=== PATIENT | male | born 1960 | race Caucasian/White ===

== ENCOUNTER → 2016-08-17 | Outpatient (CLI) | payer MEDICAID ==
[2016-08-17 10:56] LABS: ALT 42 U/L (21-72); AST 27 U/L (17-59); Alkaline Phosphatase 63 U/L (38-126); Anion Gap 11 mmol/L; Blood Urea Nitrogen 16 mg/dL (9-20); Calcium 9.1 mg/dL (8.4-10.2); Carbon Dioxide 28 mmol/L (22-30); Chloride 104 mmol/L (98-107); Cholesterol 176 mg/dL (<200); Glucose 111 mg/dL (74-99); HDL Cholesterol 32 mg/dL (40-60); Non-African American GFR(MDRD) 57 (>60 ml/min/1.73 sqM); Potassium 5.3 mmol/L (3.5-5.1); Sodium 143 mmol/L (137-145); Total Bilirubin 0.5 mg/dL (0.2-1.3); Triglycerides 212 mg/dL (<150)
== END | disposition home or self-care (01) ==
LOC: LABWHC1 07:02
PROVIDERS: ATTEND Family Medicine
DX: Z00.01 Encounter for general adult medical examination with abnormal findings (principal); Z12.5 Encounter for screening for malignant neoplasm of prostate
CPT/HCPCS: 84439; 80061; 80053; 84443; 36415; G0103

== ENCOUNTER 2016-10-09 10:05 | Emergency (ER) | payer MEDICAID ==
[2016-10-09 10:08] VITALS: BP 156/84; PULSE 90; RESP 20; TEMP 98.8
--- NOTE | 2016-10-09 10:22 | ED ---
General Adult HPI - General Chief complaint: Extremity Problem,Nontraumatic Stated complaint: foot pain Time Seen by Provider: 10/09/16 10:05 Source: patient, RN notes reviewed Mode of arrival: ambulatory Limitations: no limitations - History of Present Illness Initial comments: This is a 55-year-old male who presents emergency Department complaining of right foot pain and swelling. Patient states for about a week is been sore it started on the bottom side of his foot and now is progressive top of his foot. Patient states it also is become swollen in the last few days. Patient states it hurts to help it and it hurts to walk on. Patient states he does not remember any blunt trauma to the area. Patient doesn't remember any injury whatsoever. Patient states she was up and down a ladder quite a bit last week but something that is part of his normal job. Patient denies any history of gout. Patient denies any redness to the area. Patient denies any ankle pain toe pain or knee pain. Patient denies any other problems at this time. Patient denies any fever chills - Related Data Home Medications Medication Instructions Recorded Confirmed Aspirin [Adult Low Dose Aspirin EC] 81 mg PO DAILY 10/23/15 10/09/16 Levothyroxine Sodium [Synthroid] 88 mcg PO DAILY 10/23/15 10/09/16 Omeprazole [PriLOSEC] 20 mg PO DAILY PRN 10/23/15 10/09/16 amLODIPine [Norvasc] 5 mg PO DAILY 10/23/15 10/09/16 Ibuprofen [Motrin] 400 mg PO Q8H PRN 10/09/16 10/09/16 Allergies Allergy/AdvReac Type Severity Reaction Status Date / Time No Known Allergies Allergy Verified 10/09/16 10:20 Review of Systems ROS Statement: Those systems with pertinent positive or pertinent negative responses have been documented in the HPI. ROS Other: All systems not noted in ROS Statement are negative. Past Medical History Past Medical History: GERD/Reflux, Hypertension, Thyroid Disorder History of Any Multi-Drug Resistant Organisms: None Reported Past Surgical History: Orthopedic Surgery Additional Past Surgical History / Comment(s): colonscopy, left knee Past Anesthesia/Blood Transfusion Reactions: No Reported Reaction Past Psychological History: No Psychological Hx Reported Smoking Status: Never smoker Past Alcohol Use History: None Reported Past Drug Use History: None Reported - Past Family History Father Family Medical History: Cancer General Exam - General Exam Comments Initial Comments: GENERAL Patient is well-developed and well-nourished. Patient is in mild distress. EYES Patient's pupils are equal and round. Extraocular motion is intact SKIN Unremarkable NEURO The patient is alert and oriented 3 PYSCH Patient has normal interpersonal interactions. MUSCULOSKELETAL The lateral mid right foot is tender to palpation and mildly swollen Limitations: no limitations Course Vital Signs 10/09/16 10:06 Temperature 98.8 F Pulse Rate 90 Respiratory 20 Rate Blood Pressure 156/84 O2 Sat by Pulse 99 Oximetry Medical Decision Making - Medical Decision Making X-ray of the foot shows no acute abnormality Disposition Clinical Impression: Foot sprain Disposition: HOME SELF-CARE Condition: Good Instructions: Foot Sprain (ED) Additional Instructions: Patient's take Motrin 600 mg every 6 hours Referrals: Anil Farrell III, MD [Primary Care Provider] - 1-2 days Time of Disposition: 10:58
--- NOTE | 2016-10-09 10:43 | XR ---
EXAMINATION TYPE: XR foot complete RT DATE OF EXAM: 10/09/2016 COMPARISON: NONE HISTORY: 55-year-old male with pain and swelling for one week TECHNIQUE: 3 views FINDINGS: Mild diffuse soft tissue swelling. No acute fracture, subluxation, or dislocation. Moderate sized taylor ntar calcaneal spur. There may be thickening at the origin of the plantar fascia. IMPRESSION: 1. Mild diffuse soft tissue swelling without acute osseous abnormality seen. 2. Moderate-sized plantar calcaneal spur. There appears to be some thickening at the origin of the pl tobias fascia. Correlate for any symptoms of plantar fasciitis
== END 2016-10-09 11:08 | disposition home or self-care (01) ==
LOC: EC 10:05
DX: S93.601A Unspecified sprain of right foot, initial encounter (principal); K21.9 Gastro-esophageal reflux disease without esophagitis; I10 Essential (primary) hypertension; E07.9 Disorder of thyroid, unspecified; Z98.890 Other specified postprocedural states; Z79.82 Long term (current) use of aspirin; Z79.899 Other long term (current) drug therapy; X58.XXXA Exposure to other specified factors, initial encounter
CPT/HCPCS: 99283

== ENCOUNTER → 2017-08-10 | Outpatient (CLI) | payer MEDICAID ==
[2017-08-10 07:59] LABS: Basophils # (A) 0.1 k/uL (0-0.2); Basophils % (A) 1 %; Eosinophils # (A) 0.3 k/uL (0-0.7); Eosinophils % (A) 6 %; HCT 47.4 % (39.0-53.0); HGB 15.8 gm/dL (13.0-17.5); Lymphocytes # (A) 2.1 k/uL (1.0-4.8); Lymphocytes % (A) 36 %; MCH 27.8 pg (25.0-35.0); MCHC 33.2 g/dL (31.0-37.0); MCV 83.7 fL (80.0-100.0); Mean Platelet Volume 7.7; Monocytes # (A) 0.5 k/uL (0-1.0); Monocytes % (A) 9 %; Neutrophils # (A) 2.6 k/uL (1.3-7.7); Neutrophils % (A) 45 %; Platelet Count 164 k/uL (150-450); RBC 5.66 m/uL (4.30-5.90); RDW 13.5 % (11.5-15.5); WBC 5.8 k/uL (3.8-10.6)
[2017-08-10 10:29] LABS: Albumin 4.2 g/dL (3.5-5.0); Potassium 4.5 mmol/L (3.5-5.1); Total Bilirubin 0.6 mg/dL (0.2-1.3); Total Protein 7.3 g/dL (6.3-8.2)
[2017-08-10 10:46] LABS: T4, Free (Free Thyroxine) 0.97 ng/dL (0.78-2.19)
[2017-08-10 11:00] LABS: PSA Annual Screen 0.42 ng/mL (0.00-4.00)
== END | disposition home or self-care (01) ==
LOC: LABWHC1 06:59
PROVIDERS: ATTEND Family Medicine
DX: E03.9 Hypothyroidism, unspecified (principal); I10 Essential (primary) hypertension
CPT/HCPCS: 84439; 80053; 84443; 85025; 36415; G0103

== ENCOUNTER → 2018-04-20 | Outpatient (CLI) | payer OTHER ==
--- NOTE | 2018-04-20 15:32 | XR ---
EXAMINATION TYPE: XR shoulder complete LT DATE OF EXAM: 04/20/2018 CLINICAL HISTORY: Left shoulder pain for 5 days after shoveling snow TECHNIQUE: Three views of the left shoulder are obtained. COMPARISON: None. FINDINGS: There is no acute fracture/dislocation evident in the left shoulder. The glenohumeral andres nt space appears within normal limits. There are small marginal osteophytes of the acromioclavicular joint. The visualized ribs are intact and unremarkable. IMPRESSION: There is no acute fracture or dislocation in the left shoulder. Mild left acromioclavicu lar arthropathy.
== END | disposition home or self-care (01) ==
LOC: RADXRMAIN 14:12
PROVIDERS: ATTEND Emergency Medicine
DX: M19.012 Primary osteoarthritis, left shoulder (principal)

== ENCOUNTER → 2018-05-22 | Outpatient (CLI) | payer MEDICAID ==
[2018-05-22 16:26] LABS: Albumin 4.4 g/dL (3.80-4.90); Albumin/Globulin Ratio 1.76 (1.60-3.17); Calcium 9.4 mg/dL (8.7-10.3); Globulin 2.5 g/dL (1.6-3.3); LDL Cholesterol,Calculated 108.8 mg/dL (0.0-131.0); Potassium 5.2 mmol/L (3.5-5.5); Total Bilirubin 0.5 mg/dL (0.2-1.2); Total Protein 6.9 g/dL (6.2-8.2); VLDL Calculation 35.2 mg/dL (5.00-40.00)
[2018-05-22 16:34] LABS: T4, Free (Free Thyroxine) 1.3 ng/dL (0.80-1.80)
== END | disposition home or self-care (01) ==
LOC: LABWHC1 07:38
PROVIDERS: ATTEND Family Medicine
DX: E03.9 Hypothyroidism, unspecified (principal); I10 Essential (primary) hypertension
CPT/HCPCS: 36415; 80053; 80061; 84439; 84443

== ENCOUNTER → 2018-11-08 | Outpatient (CLI) | payer MEDICAID ==
[2018-11-08 08:01] LABS: Basophils # (A) 0.1 k/uL (0-0.2); Basophils % (A) 1 %; Eosinophils # (A) 0.5 k/uL (0-0.7); Eosinophils % (A) 7 %; HGB 16.5 gm/dL (13.0-17.5); Lymphocytes # (A) 2.5 k/uL (1.0-4.8); Lymphocytes % (A) 33 %; MCV 84.6 fL (80.0-100.0); Mean Platelet Volume 8.2; Monocytes # (A) 0.5 k/uL (0-1.0); Monocytes % (A) 7 %; Neutrophils # (A) 3.8 k/uL (1.3-7.7); Neutrophils % (A) 50 %; Platelet Count 205 k/uL (150-450); RDW 15.2 % (11.5-15.5); WBC 7.5 k/uL (3.8-10.6)
[2018-11-08 16:37] LABS: African American GFR (CKD) 69.2 (60.0-200.0); Albumin 4.4 g/dL (3.80-4.90); Albumin/Globulin Ratio 1.83 (1.60-3.17); Anion Gap 6.2 mmol/L (4.00-12.00); BUN/Creat Ratio 12.31 Ratio (12.00-20.00); Calcium 9.2 mg/dL (8.7-10.3); Carbon Dioxide 31.8 mmol/L (21.6-31.8); Chol/HDL Ratio 4.89; Globulin 2.4 g/dL (1.6-3.3); LDL Cholesterol,Calculated 96.8 mg/dL (0.0-131.0); Potassium 4.9 mmol/L (3.5-5.5); Total Bilirubin 0.5 mg/dL (0.2-1.2); Total Protein 6.8 g/dL (6.2-8.2); VLDL Calculation 39.2 mg/dL (5.00-40.00)
[2018-11-08 16:46] LABS: T4, Free (Free Thyroxine) 1.2 ng/dL (0.80-1.80)
== END | disposition home or self-care (01) ==
LOC: LABWHC1 07:00
PROVIDERS: ATTEND Family Medicine
DX: Z00.01 Encounter for general adult medical examination with abnormal findings (principal); I10 Essential (primary) hypertension; Z13.220 Encounter for screening for lipoid disorders; Z12.5 Encounter for screening for malignant neoplasm of prostate; E03.9 Hypothyroidism, unspecified
CPT/HCPCS: 84439; 80061; 80053; 84443; 85025; 36415; G0103

== ENCOUNTER → 2019-05-21 | Outpatient (CLI) | payer MEDICAID ==
[2019-05-21 16:06] LABS: African American GFR (CKD) 69.2 (60.0-200.0); Albumin 4.5 g/dL (3.80-4.90); Albumin/Globulin Ratio 1.67 (1.60-3.17); Anion Gap 8.1 mmol/L (4.00-12.00); BUN/Creat Ratio 13.08 Ratio (12.00-20.00); Calcium 9.3 mg/dL (8.7-10.3); Carbon Dioxide 28.9 mmol/L (21.6-31.8); Globulin 2.7 g/dL (1.6-3.3); Non-African American GFR(CKD) 59.7 (60.0-200.0); Potassium 4.7 mmol/L (3.5-5.5); Total Bilirubin 0.4 mg/dL (0.2-1.2); Total Protein 7.2 g/dL (6.2-8.2)
[2019-05-21 16:13] LABS: T4, Free (Free Thyroxine) 1.2 ng/dL (0.80-1.80)
== END | disposition home or self-care (01) ==
LOC: LABWHC1 08:15
PROVIDERS: ATTEND Family Medicine
DX: I10 Essential (primary) hypertension (principal); E03.9 Hypothyroidism, unspecified
CPT/HCPCS: 36415; 80053; 84439; 84443

== ENCOUNTER → 2019-11-15 | Outpatient (CLI) | payer MEDICAID ==
[2019-11-15 08:49] LABS: Basophils # (A) 0.1 k/uL (0-0.2); Basophils % (A) 2 %; Eosinophils # (A) 0.5 k/uL (0-0.7); Eosinophils % (A) 7 %; HCT 50.6 % (39.0-53.0); HGB 16.6 gm/dL (13.0-17.5); Lymphocytes % (A) 27 %; MCH 27.5 pg (25.0-35.0); MCHC 32.8 g/dL (31.0-37.0); Monocytes # (A) 0.6 k/uL (0-1.0); Monocytes % (A) 8 %; Neutrophils # (A) 4.1 k/uL (1.3-7.7); Neutrophils % (A) 55 %; Platelet Count 188 k/uL (150-450); RBC 6.03 m/uL (4.30-5.90); RDW 12.8 % (11.5-15.5); WBC 7.5 k/uL (3.8-10.6)
[2019-11-15 18:29] LABS: African American GFR (CKD) 68.7 (60.0-200.0); Albumin 4.4 g/dL (3.80-4.90); Albumin/Globulin Ratio 1.63 (1.60-3.17); Anion Gap 8.8 mmol/L (4.00-12.00); BUN/Creat Ratio 13.08 Ratio (12.00-20.00); Calcium 9.1 mg/dL (8.7-10.3); Carbon Dioxide 28.2 mmol/L (21.6-31.8); Chol/HDL Ratio 4.91; Globulin 2.7 g/dL (1.6-3.3); Non-African American GFR(CKD) 59.3 (60.0-200.0); Total Bilirubin 0.5 mg/dL (0.3-1.2); Total Protein 7.1 g/dL (6.2-8.2)
[2019-11-15 18:37] LABS: PSA Annual Screen 0.6 ng/mL (0.0-4.0)
== END | disposition home or self-care (01) ==
LOC: LABWHC1 07:19
PROVIDERS: ATTEND Family Medicine
DX: E03.9 Hypothyroidism, unspecified (principal); I10 Essential (primary) hypertension
CPT/HCPCS: 80061; 80053; 85025; 36415; G0103

== ENCOUNTER → 2019-12-09 | Outpatient (CLI) | payer MEDICAID ==
[2019-12-10 03:48] LABS: T4, Free (Free Thyroxine) 1.1 ng/dL (0.80-1.80)
== END | disposition home or self-care (01) ==
LOC: LABWHC1 15:58
PROVIDERS: ATTEND Family Medicine
DX: E03.9 Hypothyroidism, unspecified (principal)
CPT/HCPCS: 36415; 84439; 84443

== ENCOUNTER → 2020-05-19 | Outpatient (CLI) | payer MEDICAID ==
[2020-05-19 12:12] LABS: African American GFR (CKD) 68.7 (60.0-200.0); Albumin 4.6 g/dL (3.80-4.90); Albumin/Globulin Ratio 1.84 (1.60-3.17); Anion Gap 2.9 mmol/L (4.00-12.00); BUN/Creat Ratio 13.08 Ratio (12.00-20.00); Calcium 9.4 mg/dL (8.7-10.3); Carbon Dioxide 33.1 mmol/L (21.6-31.8); Chol/HDL Ratio 5.53; Globulin 2.5 g/dL (1.6-3.3); Non-African American GFR(CKD) 59.3 (60.0-200.0); Potassium 5.1 mmol/L (3.5-5.5); Total Bilirubin 0.6 mg/dL (0.3-1.2); Total Protein 7.1 g/dL (6.2-8.2)
[2020-05-19 12:21] LABS: T4, Free (Free Thyroxine) 1.1 ng/dL (0.80-1.80)
== END | disposition home or self-care (01) ==
LOC: LABWHC1 07:14
PROVIDERS: ATTEND Family Medicine
DX: E78.1 Pure hyperglyceridemia (principal); E03.9 Hypothyroidism, unspecified; I10 Essential (primary) hypertension
CPT/HCPCS: 36415; 80053; 80061; 84439; 84443

== ENCOUNTER → 2020-11-24 | Outpatient (CLI) | payer MEDICAID ==
[2020-11-24 11:27] LABS: Basophils # (A) 0.07 X 10*3/uL (0.00-0.10); Basophils % (A) 0.9 %; HCT 49.7 % (39.6-50.0); HGB 16.2 g/dL (13.0-17.0); Lymphocytes % (A) 34.3 %; MCHC 32.6 g/dL (32.0-37.0); Mean Platelet Volume 11.3 fL (9.5-12.2); Monocytes % (A) 10.6 %; Neutrophils # (A) 3.79 X 10*3/uL (1.80-7.70); Neutrophils % (A) 49.9 %; Platelet Count 239 X 10*3/uL (140-440); RBC 5.78 X 10*6/uL (4.40-5.60); RDW 13.2 % (11.5-14.5); WBC 7.58 X 10*3/uL (4.50-10.00)
[2020-11-25 20:33] LABS: African American GFR (CKD) 77.5 (60.0-200.0); Albumin 4.8 g/dL (3.8-4.9); Albumin/Globulin Ratio 1.59 (1.60-3.17); Anion Gap 19.7 mmol/L (4.00-12.00); BUN/Creat Ratio 13.68 Ratio (12.00-20.00); Calcium 9.6 mg/dL (8.7-10.3); Carbon Dioxide 22.5 mmol/L (21.6-31.8); Chol/HDL Ratio 5.54 Ratio; HDL Cholesterol 33.2 mg/dL (40.00-60.00); Non-African American GFR(CKD) 66.9 (60.0-200.0); T4, Free (Free Thyroxine) 1.41 ng/dL (0.800-1.800); Total Bilirubin 0.4 mg/dL (0.30-1.20); Total Protein 7.7 g/dL (6.2-8.2); VLDL Calculation 40.8 mg/dL (5.00-40.00)
== END | disposition home or self-care (01) ==
LOC: LABWHC1 07:33
PROVIDERS: ATTEND Family Medicine
DX: I10 Essential (primary) hypertension (principal); E03.9 Hypothyroidism, unspecified; E78.1 Pure hyperglyceridemia
CPT/HCPCS: 84439; 80061; 80053; 84443; 85025; 36415; G0103

== ENCOUNTER → 2021-05-25 | Outpatient (CLI) | payer MEDICAID ==
[2021-05-25 10:36] LABS: ALT 29 U/L (10-49); AST 23 U/L (14-35); African American GFR (CKD) 68.3 (60.0-200.0); Albumin 4.6 g/dL (3.8-4.9); Albumin/Globulin Ratio 1.59 (1.60-3.17); Alkaline Phosphatase 56 U/L (41-126); BUN/Creat Ratio 14.08 Ratio (12.00-20.00); Blood Urea Nitrogen 18.3 mg/dL (9.0-27.0); Calcium 9.3 mg/dL (8.7-10.3); Carbon Dioxide 27.1 mmol/L (20.0-27.5); Chloride 103 mmol/L (96-109); Chol/HDL Ratio 5.74 Ratio; Globulin 2.9 g/dL (1.6-3.3); Glucose 119 mg/dL (70-110); LDL Cholesterol,Calculated 107.7 mg/dL (0.0-131.0); Non-African American GFR(CKD) 58.9 (60.0-200.0); Sodium 142 mmol/L (135-145); Total Protein 7.5 g/dL (6.2-8.2)
== END | disposition home or self-care (01) ==
LOC: LABWHC1 07:10
PROVIDERS: ATTEND Family Medicine
DX: I10 Essential (primary) hypertension (principal); E03.9 Hypothyroidism, unspecified; E78.1 Pure hyperglyceridemia
CPT/HCPCS: 36415; 80053; 80061; 84439; 84443

== ENCOUNTER 2021-11-22 06:47 | Emergency (ER) | payer MEDICAID ==
[2021-11-22 06:52] VITALS: RESP 18
--- NOTE | 2021-11-22 07:10 | ED ---
General Adult HPI - General Chief complaint: Extremity Problem,Nontraumatic Stated complaint: Left Knee and leg pain Time Seen by Provider: 11/22/21 06:59 Source: patient, RN notes reviewed Mode of arrival: ambulatory Limitations: no limitations - History of Present Illness Initial comments: Patient is a pleasant 61-year-old male presenting to the emergency department with concerns with left onset of symptoms was over a week ago. Patient noticed while he was at work. Symptoms do worsen while walking. Discomfort is mostly left anterior However somewhat radiates down the leg and has some mild discomfort left foot as well. Patient does have history of previous left knee problems and had a scope done. Patient also has history of previous left foot problems and improved with Naprosyn. No calf pain. No swelling. No fever. No rash. No weakness. - Related Data Home Medications Medication Instructions Recorded Confirmed Aspirin [Adult Low Dose Aspirin EC] 81 mg PO DAILY 10/23/15 10/09/16 Levothyroxine Sodium [Synthroid] 88 mcg PO DAILY 10/23/15 10/09/16 Omeprazole [PriLOSEC] 20 mg PO DAILY PRN 10/23/15 10/09/16 amLODIPine [Norvasc] 5 mg PO DAILY 10/23/15 10/09/16 Ibuprofen [Motrin] 400 mg PO Q8H PRN 10/09/16 10/09/16 Previous Rx's Medication Instructions Recorded Naproxen [EC-Naproxen] 500 mg PO BID PRN #30 tab 11/22/21 Allergies Allergy/AdvReac Type Severity Reaction Status Date / Time No Known Allergies Allergy Verified 11/22/21 06:52 Review of Systems ROS Statement: Those systems with pertinent positive or pertinent negative responses have been documented in the HPI. ROS Other: All systems not noted in ROS Statement are negative. Constitutional: Denies: fever Eyes: Denies: eye pain ENT: Denies: ear pain Respiratory: Denies: cough Cardiovascular: Denies: chest pain Endocrine: Denies: fatigue Gastrointestinal: Denies: abdominal pain Genitourinary: Denies: dysuria Musculoskeletal: Reports: as per HPI. Denies: back pain, joint swelling Skin: Denies: rash Neurological: Denies: weakness Past Medical History Past Medical History: GERD/Reflux, Hypertension, Thyroid Disorder History of Any Multi-Drug Resistant Organisms: None Reported Past Surgical History: Orthopedic Surgery Additional Past Surgical History / Comment(s): colonscopy, left knee Past Anesthesia/Blood Transfusion Reactions: No Reported Reaction Past Psychological History: No Psychological Hx Reported Smoking Status: Never smoker Past Alcohol Use History: None Reported Past Drug Use History: None Reported - Past Family History Father Family Medical History: Cancer General Exam Limitations: no limitations General appearance: alert, in no apparent distress Head exam: Present: normocephalic Eye exam: Present: normal appearance Neck exam: Present: normal inspection Respiratory exam: Present: normal lung sounds bilaterally Cardiovascular Exam: Present: regular rate Expanded Peripheral pulses: 2+: Posterior Tibialis (L), Dorsalis Pedis (L) GI/Abdominal exam: Present: soft. Absent: tenderness Extremities exam: Present: normal inspection, tenderness (Minimal tenderness left lateral mid foot). Absent: pedal edema, calf tenderness Left Knee exam: Present: normal inspection, full ROM. Absent: tenderness, swelling, deformity, erythema, effusion, pain w/ pronation/supination, pain/laxity with valgus, pain/laxity with varus Back exam: Present: normal inspection. Absent: tenderness, vertebral tenderness Neurological exam: Present: alert. Absent: motor sensory deficit Expanded Sensory exam: Lower Extremity Light Touch: Normal Motor strength exam: RLE: 5, LLE: 5 Psychiatric exam: Present: normal affect, normal mood Skin exam: Present: normal color. Absent: rash Course Vital Signs 11/22/21 06:50 Temperature 98.7 F Pulse Rate 103 H Respiratory 18 Rate Blood Pressure 148/82 O2 Sat by Pulse 95 Oximetry Medical Decision Making - Medical Decision Making Patient reevaluated and updated - Radiology Data Radiology results: image reviewed (X-ray left knee shows mild osteal arthritis. Left foot shows likely old fracture fragment.) Disposition Clinical Impression: Knee pain, Foot pain Disposition: HOME SELF-CARE Condition: Stable Instructions (If sedation given, give patient instructions): Knee Pain (ED) Additional Instructions: Prescription sent to pharmacy. Please do follow-up to primary care physician and orthopedic doctor in the next couple days for recheck. Return for increased pain, swelling, redness, weakness, worsening or changing symptoms or other concerns. Prescriptions: Naproxen [EC-Naproxen] 500 mg PO BID PRN #30 tab PRN Reason: Pain Is patient prescribed a controlled substance at d/c from ED?: No Referrals: Anil Farrell III, MD [Primary Care Provider] - 1-2 days Edu Gilliland DO [Doctor of Osteopathic Medicine] - 1-2 days Time of Disposition: 07:55
--- NOTE | 2021-11-22 07:34 | XR ---
EXAMINATION TYPE: XR knee complete 3 views LT, XR foot complete 3 views LT DATE OF EXAM: 11/22/2021 COMPARISON: None HISTORY: 61-year-old male with pain FINDINGS: Left knee: Extensor mechanism is intact. Mild degenerative spurring medial and patellofemoral compartments. No k nee joint effusion. No acute fracture, subluxation, or dislocation. Enthesopathy at the tibial tubero sity. Left foot: There is a corticated bone fragment at the anterior process of the calcaneus, possibly related to an old fracture injury. Clinically correlate. Moderate sized plantar heel spur. Small posterior calcanea l spur. No acute fracture, subluxation, or dislocation seen. IMPRESSION: 1. Knee: Mild medial and patellofemoral compartment osteoarthrosis. No acute osseous abnormality seen . 2. Left foot: Small 6 mm corticated bone fragment adjacent to the anterior process of the calcaneus s een on the oblique view, likely sequela of old injury with a chronic ununited fracture fragment. Clin ically correlate. Query if this contributes to any mechanical symptoms. Posterior and plantar calcane al spurs. No acute osseous abnormality seen.
[2021-11-22] MEDS ORDERED: KETOROLAC 15 MG/ML 1 ML VIAL IM STA (07:56)
[2021-11-22 08:11] VITALS: BP 142/84; PULSE 98; TEMP 98.6
== END 2021-11-22 08:11 | disposition home or self-care (01) ==
LOC: EC 06:47
DX: M25.572 Pain in left ankle and joints of left foot (principal); K21.9 Gastro-esophageal reflux disease without esophagitis; I10 Essential (primary) hypertension; E07.9 Disorder of thyroid, unspecified; Z79.82 Long term (current) use of aspirin; Z79.890 Hormone replacement therapy; Z79.899 Other long term (current) drug therapy
CPT/HCPCS: 73562; 73630; 99283; J1885; 96372

== ENCOUNTER → 2021-11-24 | Outpatient (CLI) | payer MEDICAID ==
[2021-11-24 14:45] LABS: Basophils # (A) 0.08 X 10*3/uL (0.00-0.10); Basophils % (A) 0.6 %; Eosinophils # (A) 0.47 X 10*3/uL (0.04-0.35); Eosinophils % (A) 3.5 %; HCT 45.9 % (39.6-50.0); HGB 14.9 g/dL (13.0-17.0); Immature Grans, Automated 0.9 %; Lymphocytes # (A) 1.72 X 10*3/uL (0.90-5.00); MCH 27.5 pg (27.0-32.0); MCHC 32.5 g/dL (32.0-37.0); MCV 84.7 fL (80.0-97.0); Mean Platelet Volume 10.1 fL (9.5-12.2); Monocytes # (A) 1.16 X 10*3/uL (0.20-1.00); Monocytes % (A) 8.7 %; NRBC Per 100 WBC 0 /100 WBCS (0.0-0.0); Neutrophils # (A) 9.73 X 10*3/uL (1.80-7.70); Neutrophils % (A) 73.3 %; Platelet Count 339 X 10*3/uL (140-440); RBC 5.42 X 10*6/uL (4.40-5.60); RDW 13.1 % (11.5-14.5); WBC 13.28 X 10*3/uL (4.50-10.00)
[2021-11-24 15:01] LABS: ALT 19 U/L (10-49); AST 22 U/L (14-35); Albumin 3.7 g/dL (3.8-4.9); Albumin/Globulin Ratio 0.75 (1.60-3.17); Alkaline Phosphatase 59 U/L (41-126); BUN/Creat Ratio 12.64 Ratio (12.00-20.00); Blood Urea Nitrogen 13.9 mg/dL (9.0-27.0); Calcium 9.1 mg/dL (8.7-10.3); Carbon Dioxide 25.7 mmol/L (20.0-27.5); Chloride 101 mmol/L (96-109); Chol/HDL Ratio 4.01 Ratio; Glucose 122 mg/dL (70-110); LDL Cholesterol,Calculated 72.7 mg/dL (0.0-131.0); Non-African American GFR(CKD) 71.6 (60.0-200.0); Sodium 139 mmol/L (135-145); Total Protein 8.7 g/dL (6.2-8.2)
== END | disposition home or self-care (01) ==
LOC: LABWHC1 08:42
PROVIDERS: ATTEND Family Medicine
DX: I10 Essential (primary) hypertension (principal); E03.9 Hypothyroidism, unspecified; E78.1 Pure hyperglyceridemia; R73.09 Other abnormal glucose
CPT/HCPCS: 84439; 80061; 80053; 84443; 85025; 83036; 36415; G0103

== ENCOUNTER 2021-12-12 10:34 | Inpatient (IN) | payer MEDICAID ==
[2021-12-12] MEDS ORDERED: PANTOPRAZOLE 40 MG/10 ML VIAL IVP STA (11:18)
[2021-12-12] MEDS ORDERED: SODIUM CHLORIDE 0.9% 1,000 ML IV STA (11:18)
[2021-12-12] MEDS ORDERED: SODIUM CHLORIDE 0.9% 2,000 ML IV STA (11:26)
[2021-12-12 11:43] LABS: Basophils # (A) 0.1 k/uL (0-0.2); Basophils % (A) 0 %; Eosinophils # (A) 0.3 k/uL (0-0.7); Eosinophils % (A) 3 %; HCT 25.9 % (39.0-53.0); Hypochromasia Slight; Lymphocytes # (A) 1.8 k/uL (1.0-4.8); Lymphocytes % (A) 17 %; MCH 28.4 pg (25.0-35.0); MCHC 33.1 g/dL (31.0-37.0); Mean Platelet Volume 8.3; Monocytes # (A) 0.5 k/uL (0-1.0); Monocytes % (A) 4 %; Neutrophils # (A) 8.3 k/uL (1.3-7.7); Neutrophils % (A) 75 %; Platelet Count 331 k/uL (150-450); RBC 3.01 m/uL (4.30-5.90); RDW 15.5 % (11.5-15.5); WBC 11.1 k/uL (3.8-10.6)
[2021-12-12 11:55] LABS: HGB 8.5 gm/dL (13.0-17.5)
[2021-12-12 11:56] LABS: Albumin 4.1 g/dL (3.5-5.0); Calcium 8.4 mg/dL (8.4-10.2); Magnesium 2.1 mg/dL (1.6-2.3); Potassium 4.3 mmol/L (3.5-5.1); Total Bilirubin 0.5 mg/dL (0.2-1.3); Total Protein 7.2 g/dL (6.3-8.2)
[2021-12-12 12:05] LABS: INR 0.9 (<1.2); Partial Thromboplastin Time 22.1 sec (22.0-30.0); Prothrombin Time 9.8 sec (9.0-12.0)
[2021-12-12] MEDS ORDERED: NALOXONE 0.4 MG/ML 1 ML VIAL IV PRN (12:48)
--- NOTE | 2021-12-12 14:49 | ED ---
GI Bleed HPI - General Chief complaint: GI Bleed Stated complaint: Ulcers Time Seen by Provider: 12/12/21 11:18 Source: patient, family Mode of arrival: wheelchair Limitations: no limitations - History of Present Illness Initial comments: Patient is a 61-year-old male who presents to the emergency department with a chief complaint of blood in stool. Patient was recently admitted to the [facility] for GI bleed from 12/04-12/07. Patient initially presented very hypotensive. His hemoglobin remained stable, not dropping below 10.5 during his stay however he was given 2 units due to repeated episodes of hematochezia and consistent hypotension. Patient had EGD which showed gastritis and peptic ulcer disease, likely due to recent anti-inflammatory use. Patient states since discharge he has not had any episodes of blood in stool until today. Reports 2 episodes of bright red blood diarrhea this morning. States he feels lightheaded otherwise has no other concerns. He denies fever, chills, dizziness, shortness of breath, chest pain, abdominal pain, nausea, vomiting. Patient uses aspirin otherwise denies blood thinner use. States he hasn't taken his prescription of Protonix and Carafate as directed. Denies further use of anti-inflammatories since discharge from the hospital. - Related Data Home Medications Medication Instructions Recorded Confirmed Aspirin [Adult Low Dose Aspirin EC] 81 mg PO DAILY 10/23/15 12/05/21 amLODIPine [Norvasc] 5 mg PO DAILY 10/23/15 12/05/21 Acetaminophen Tab [Tylenol] 1,000 mg PO Q6H PRN 12/05/21 12/05/21 Latanoprost [Latanoprost 0.005%] 1 drop BOTH EYES HS 12/05/21 12/05/21 Levothyroxine Sodium [Synthroid] 100 mcg PO AC-[id number] 12/05/21 12/05/21 Previous Rx's Medication Instructions Recorded Pantoprazole [Protonix] 40 mg PO BID 56 Days #112 tab 12/07/21 Sucralfate [Carafate] 1 gm PO AC-TID 56 Days #168 tablet 12/07/21 Allergies Allergy/AdvReac Type Severity Reaction Status Date / Time No Known Allergies Allergy Verified 12/12/21 15:33 Review of Systems ROS Statement: Those systems with pertinent positive or pertinent negative responses have been documented in the HPI. ROS Other: All systems not noted in ROS Statement are negative. Past Medical History Past Medical History: GERD/Reflux, GI Bleed, Hypertension, Thyroid Disorder History of Any Multi-Drug Resistant Organisms: None Reported Past Surgical History: Orthopedic Surgery Additional Past Surgical History / Comment(s): colonscopy, left knee Past Anesthesia/Blood Transfusion Reactions: No Reported Reaction Past Psychological History: No Psychological Hx Reported Smoking Status: Never smoker Past Alcohol Use History: None Reported Past Drug Use History: None Reported - Past Family History Father Family Medical History: Cancer Additional Family Medical History / Comment(s): Prostate cancer Mother Additional Family Medical History / Comment(s): CKD late stage, pt unsure of exact stage at this time. General Exam Limitations: no limitations General appearance: alert, in no apparent distress Head exam: Present: atraumatic, normocephalic, normal inspection Eye exam: Present: normal appearance, PERRL, EOMI. Absent: scleral icterus, conjunctival injection, periorbital swelling Respiratory exam: Present: normal lung sounds bilaterally. Absent: respiratory distress, wheezes, rales, rhonchi, stridor Cardiovascular Exam: Present: regular rate, normal rhythm, normal heart sounds. Absent: systolic murmur, diastolic murmur, rubs, gallop, clicks GI/Abdominal exam: Present: soft, normal bowel sounds. Absent: distended, tenderness, guarding, rebound, rigid Rectal exam: Present: other (no active bleeding ) Neurological exam: Present: alert, oriented X3, CN II-XII intact Psychiatric exam: Present: normal affect, normal mood Skin exam: Present: warm, dry, intact, normal color. Absent: rash Course Vital Signs 12/12/21 12/12/21 11:12 12:34 Temperature 98.2 F Pulse Rate 109 H 87 Respiratory 16 16 Rate Blood Pressure 94/60 118/61 O2 Sat by Pulse 99 96 Oximetry Medical Decision Making - Medical Decision Making This is a 61-year-old male presenting with GI bleed.Blood pressure initially 94/60 however improved to 118/61 prior to IV fluids. No active rectal bleeding. Laboratory studies obtained. Hemoglobin is 8.5, decreased from 11.3 on 12/06. Patient denies any further bowel movements during his emergency stay. Blood pressure remained stable. Discussed with Dr. Centeno who accepts admission. General surgery on consult. Patient admitted in stable condition. Dr. Lee is my attending. - Lab Data Result diagrams: 12/12/21 11:35 12/12/21 11:35 Lab Results 12/12/21 12/12/21 12/12/21 Range/Units 11:35 11:35 11:35 WBC 11.1 H (3.8-10.6) k/uL RBC 3.01 L (4.30-5.90) m/uL Hgb 8.5 L D (13.0-17.5) gm/dL Hct 25.9 L (39.0-53.0) % MCV 86.0 (80.0-100.0) fL MCH 28.4 (25.0-35.0) pg MCHC 33.1 (31.0-37.0) g/dL RDW 15.5 (11.5-15.5) % Plt Count 331 (150-450) k/uL MPV 8.3 Neutrophils % 75 % Lymphocytes % 17 % Monocytes % 4 % Eosinophils % 3 % Basophils % 0 % Neutrophils # 8.3 H (1.3-7.7) k/uL Lymphocytes # 1.8 (1.0-4.8) k/uL Monocytes # 0.5 (0-1.0) k/uL Eosinophils # 0.3 (0-0.7) k/uL Basophils # 0.1 (0-0.2) k/uL Hypochromasia Slight PT 9.8 (9.0-12.0) sec INR 0.9 (<1.2) APTT 22.1 (22.0-30.0) sec Sodium 137 (137-145) mmol/L Potassium 4.3 (3.5-5.1) mmol/L Chloride 102 (98-107) mmol/L Carbon Dioxide 24 (22-30) mmol/L Anion Gap 11 mmol/L BUN 24 H (9-20) mg/dL Creatinine 1.06 (0.66-1.25) mg/dL Est GFR (CKD-EPI)AfAm 87 (>60 ml/min/1.73 sqM) Est GFR (CKD-EPI)NonAf 75 (>60 ml/min/1.73 sqM) Glucose 172 H (74-99) mg/dL Calcium 8.4 (8.4-10.2) mg/dL Magnesium 2.1 (1.6-2.3) mg/dL Total Bilirubin 0.5 (0.2-1.3) mg/dL AST 25 (17-59) U/L ALT 27 (4-49) U/L Alkaline Phosphatase 48 (38-126) U/L Total Protein 7.2 (6.3-8.2) g/dL Albumin 4.1 (3.5-5.0) g/dL Lipase 302 H (23-300) U/L Blood Type Blood Type Recheck Bld Type Recheck Status Antibody Screen Spec Expiration Date 12/12/21 Range/Units 11:35 WBC (3.8-10.6) k/uL RBC (4.30-5.90) m/uL Hgb (13.0-17.5) gm/dL Hct (39.0-53.0) % MCV (80.0-100.0) fL MCH (25.0-35.0) pg MCHC (31.0-37.0) g/dL RDW (11.5-15.5) % Plt Count (150-450) k/uL MPV Neutrophils % % Lymphocytes % % Monocytes % % Eosinophils % % Basophils % % Neutrophils # (1.3-7.7) k/uL Lymphocytes # (1.0-4.8) k/uL Monocytes # (0-1.0) k/uL Eosinophils # (0-0.7) k/uL Basophils # (0-0.2) k/uL Hypochromasia PT (9.0-12.0) sec INR (<1.2) APTT (22.0-30.0) sec Sodium (137-145) mmol/L Potassium (3.5-5.1) mmol/L Chloride (98-107) mmol/L Carbon Dioxide (22-30) mmol/L Anion Gap mmol/L BUN (9-20) mg/dL Creatinine (0.66-1.25) mg/dL Est GFR (CKD-EPI)AfAm (>60 ml/min/1.73 sqM) Est GFR (CKD-EPI)NonAf (>60 ml/min/1.73 sqM) Glucose (74-99) mg/dL Calcium (8.4-10.2) mg/dL Magnesium (1.6-2.3) mg/dL Total Bilirubin (0.2-1.3) mg/dL AST (17-59) U/L ALT (4-49) U/L Alkaline Phosphatase (38-126) U/L Total Protein (6.3-8.2) g/dL Albumin (3.5-5.0) g/dL Lipase (23-300) U/L Blood Type AB Positive Blood Type Recheck AB Pos Bld Type Recheck Status No Antibody Screen NEGATIVE Spec Expiration Date 12/15/20212334 Disposition Clinical Impression: GI bleed, Lightheadedness Disposition: ADMITTED IP TO THIS [facility] Condition: Fair Referrals: Anil Farrell III, MD [Primary Care Provider] - 1-2 days Decision Time: 15:32
[2021-12-12] MEDS: SUCRALFATE 1 GM TAB PO SCH (16:59)
[2021-12-12] MEDS: SODIUM CHLORIDE 0.9% 1,000 ML IV SCH ×2 (18:02→21:56)
--- NOTE | 2021-12-12 18:11 | P.GSCN ---
History of Present Illness Consult date: 12/12/21 Reason for Consult: GI bleeding, duodenal ulcer diagnosed on EGD approximately one week ago, nonsteroidal anti-inflammatory medication use. History of present illness: Patient is a 61-year-old gentleman presented to [facility] emergency department 12/12/2021 with complaints of melena progressing hematochezia and some of orthostatic symptoms with dizziness and lightheadedness. He denies chest pain or shortness of breath. I saw him in consultation in the inpatient setting earlier this month, hemoglobin admitted to the ICU from the ER with a rather dramatic GI bleed with transient lactic acidosis in the ER. He responded well to packed red blood cells. A performed is EGD this past 12/06/2021 revealing antral service erosions, a few small antral ulcerations and a larger 1 cm so proximal duodenal ulcer without stigmata of ongoing or recent hemorrhage. Biopsy was deferred. Leading up to this point he'd been using nonsteroidal anti-inflammatory medications concurrently of the for some musculoskeletal pains and an issue with presumed gout for around a month. NSAIDs were discontinued when I last saw him. He tells me he got his outpatient Protonix and Carafate prescription stabilities been taking them as prescribed, the ER note suggests otherwise. He presents with mild tachycardia, mildly hypotensive. Hemoglobin is just above 8, he's been stable at around 10 at time of discharge from his last admission earlier this month. He is not maintained on any manner of oral anticoagulants. His aspirin has been held since his last admission, he tells me has been at least a week since he last took it. Review of Systems All systems: negative - Constitutional Reports as per HPI - Respiratory Reports as per HPI Past Medical History Past Medical History: GERD/Reflux, GI Bleed, Hypertension, Thyroid Disorder History of Any Multi-Drug Resistant Organisms: None Reported Past Surgical History: Orthopedic Surgery Additional Past Surgical History / Comment(s): colonscopy, left knee Past Anesthesia/Blood Transfusion Reactions: No Reported Reaction Past Psychological History: No Psychological Hx Reported Smoking Status: Never smoker Past Alcohol Use History: None Reported Past Drug Use History: None Reported - Past Family History Father Family Medical History: Cancer Additional Family Medical History / Comment(s): Prostate cancer Mother Additional Family Medical History / Comment(s): CKD late stage, pt unsure of exact stage at this time. Medications and Allergies Home Medications Medication Instructions Recorded Confirmed Type Aspirin [Adult Low Dose Aspirin EC] 81 mg PO DAILY 10/23/15 12/12/21 History amLODIPine [Norvasc] 5 mg PO DAILY 10/23/15 12/12/21 History Acetaminophen Tab [Tylenol] 1,000 mg PO Q6H PRN 12/05/21 12/12/21 History Latanoprost [Latanoprost 0.005%] 1 drop BOTH EYES HS 12/05/21 12/12/21 History Levothyroxine Sodium [Synthroid] 100 mcg PO AC-BRKFST 12/05/21 12/12/21 History Pantoprazole [Protonix] 40 mg PO BID 56 Days #112 tab 12/07/21 12/12/21 Rx Sucralfate [Carafate] 1 gm PO AC-TID 56 Days #168 tablet 12/07/21 12/12/21 Rx Allergies Allergy/AdvReac Type Severity Reaction Status Date / Time No Known Allergies Allergy Verified 12/12/21 15:33 Surgical - Exam Osteopathic Statement: *. No significant issues noted on an osteopathic structural exam other than those noted in the History and Physical/Consult. Vital Signs Temp Pulse Resp BP Pulse Ox 98.2 F 109 H 16 94/60 99 12/12/21 11:12 12/12/21 11:12 12/12/21 11:12 12/12/21 11:12 12/12/21 11:12 - General well developed, well nourished, no distress - Eyes PERRL - ENT normal pinna, normal nares, normal mucosa, no hearing loss, no congestion - Respiratory normal expansion, normal respiratory effort, clear to auscultation - Cardiovascular Rhythm: regular - Abdomen Abdomen is soft, nontender to palpation, no guarding rebound or distention. Abdomen: soft, non tender - Integumentary no rash, no growths, no abnormal pigmentation - Neurologic normal coordination, normal sensation - Psychiatric oriented to time, oriented to person, oriented to place, speech is normal, memory intact Results - Labs 12/12/21 11:35 12/12/21 11:35 Abnormal Lab Results - Last 24 Hours (Table) 12/12/21 12/12/21 Range/Units 11:35 11:35 WBC 11.1 H (3.8-10.6) k/uL RBC 3.01 L (4.30-5.90) m/uL Hgb 8.5 L D (13.0-17.5) gm/dL Hct 25.9 L (39.0-53.0) % Neutrophils # 8.3 H (1.3-7.7) k/uL BUN 24 H (9-20) mg/dL Glucose 172 H (74-99) mg/dL Lipase 302 H (23-300) U/L Diabetes panel 12/12/21 Range/Units 11:35 Sodium 137 (137-145) mmol/L Potassium 4.3 (3.5-5.1) mmol/L Chloride 102 (98-107) mmol/L Carbon Dioxide 24 (22-30) mmol/L BUN 24 H (9-20) mg/dL Creatinine 1.06 (0.66-1.25) mg/dL Glucose 172 H (74-99) mg/dL Calcium 8.4 (8.4-10.2) mg/dL AST 25 (17-59) U/L ALT 27 (4-49) U/L Alkaline Phosphatase 48 (38-126) U/L Total Protein 7.2 (6.3-8.2) g/dL Albumin 4.1 (3.5-5.0) g/dL Calcium panel 12/12/21 Range/Units 11:35 Calcium 8.4 (8.4-10.2) mg/dL Albumin 4.1 (3.5-5.0) g/dL Pituitary panel 12/12/21 Range/Units 11:35 Sodium 137 (137-145) mmol/L Potassium 4.3 (3.5-5.1) mmol/L Chloride 102 (98-107) mmol/L Carbon Dioxide 24 (22-30) mmol/L BUN 24 H (9-20) mg/dL Creatinine 1.06 (0.66-1.25) mg/dL Glucose 172 H (74-99) mg/dL Calcium 8.4 (8.4-10.2) mg/dL Adrenal panel 12/12/21 Range/Units 11:35 Sodium 137 (137-145) mmol/L Potassium 4.3 (3.5-5.1) mmol/L Chloride 102 (98-107) mmol/L Carbon Dioxide 24 (22-30) mmol/L BUN 24 H (9-20) mg/dL Creatinine 1.06 (0.66-1.25) mg/dL Glucose 172 H (74-99) mg/dL Calcium 8.4 (8.4-10.2) mg/dL Total Bilirubin 0.5 (0.2-1.3) mg/dL AST 25 (17-59) U/L ALT 27 (4-49) U/L Alkaline Phosphatase 48 (38-126) U/L Total Protein 7.2 (6.3-8.2) g/dL Albumin 4.1 (3.5-5.0) g/dL Assessment and Plan Assessment: 66-year-old gentleman with recurrent GI bleeding, recently admitted to the same hospital around a week ago. Signs of acute blood loss anemia with mild tachycardia, mildly hypotensive with approximately 2 g deficit compared to his previous admission. Suspect relating to recalcitrant to recurrent upper GI b leed. 1 cm duodenal ulcer demonstrated on upper endoscopy this past December 06 along with multiple surface erosions and more shallow ulcerations at the antrum in the setting of NSAID overuse. Patient states he has been compliant with his twice daily Protonix and 4 times daily Carafate. Differential would include lower GI bleeding etiologies but clinically sounds like an upper source. Plan: Patient's been medical service. Serial CBC, transfusion threshold of 7. He has persistent signs of GI bleeding he'll need a repeat upper endoscopy and likely an inpatient colonoscopy. This would require serial enemas for bowel prep. Okay for clear liquids in the meantime. He needs his oral Protonix switched IV drip equivalent, continue with Carafate. Time with Patient: Greater than 30
[2021-12-12 18:46] LABS: Basophils # (A) 0.1 k/uL (0-0.2); Basophils % (A) 1 %; Eosinophils # (A) 0.2 k/uL (0-0.7); Eosinophils % (A) 2 %; HCT 23.7 % (39.0-53.0); HGB 7.7 gm/dL (13.0-17.5); Hypochromasia Slight; Lymphocytes # (A) 2.4 k/uL (1.0-4.8); Lymphocytes % (A) 25 %; MCH 28.5 pg (25.0-35.0); MCHC 32.5 g/dL (31.0-37.0); MCV 87.6 fL (80.0-100.0); Mean Platelet Volume 8.4; Monocytes # (A) 0.4 k/uL (0-1.0); Monocytes % (A) 5 %; Neutrophils # (A) 6.2 k/uL (1.3-7.7); Neutrophils % (A) 66 %; Platelet Count 283 k/uL (150-450); RDW 15.5 % (11.5-15.5); WBC 9.5 k/uL (3.8-10.6)
[2021-12-12] MEDS ORDERED: PANTOPRAZOLE 40 MG TABLET PO SCH (21:00)
[2021-12-12] MEDS: PANTOPRAZOLE 40 MG/10 ML VIAL IVP SCH (21:48)
[2021-12-12] MEDS: LATANOPROST 0.005% OPHTH DROPS 2.5 ML BTL BOTH EYES SCH (21:56)
--- NOTE | 2021-12-13 03:09 | P.HPIM ---
History of Present Illness H&P Date: 12/12/21 Chief Complaint: Blood in the stool Patient is a 59-year-old male with a known history of hypertension, recent history of GI bleed s/p EGD, hypothyroidism, GERD presents to ER with complaints of bright blood in the stool. Patient was admitted to the hospital recently due to GI bleed from 12 04-12 07. Patient underwent EGD showed gastritis and peptic ulcer disease likely due to recent anti-inflammatory use. Patient states that he has not had any episodes of blood in the stool until today. Patient reports to episodes of bright red blood in the stool. Denies any passing clots. Patient states that he felt lightheaded otherwise no complaints of chest pain or shortness of breath. No fever no chills. No Lorie's maneuver. Patient has been using Protonix as prescribed and Carafate as well. Denies any complaints of abdominal pain. No nausea or vomiting. Laboratory data showed WBC 11.1 hemoglobin 8.5 and platelets 331 Sodium 137 potassium 4.3 chloride 102 BUN 24 and creatinine 1.06 Blood sugar is 172 and lipase level is 302. Hemoglobin during last discharge was 11.3. Review of Systems Constitutional: Patient denies any fever or chills . no Generalized weakness. Abdomen: Patient denied any nausea or vomiting or abd. pain Cardiovascular: Patient denies any chest pain or short of breath no palpitations. Respiratory: patient denied any cough . no sputum production. No shortness of breath Neurologic: Patient denied any numbness or tingling headache. Musculoskeletal: Patient denies any complaints of joint swelling or deformity. Skin: Negative Psychiatric: Negative Endocrine: No heat or cold intolerance. No recent weight gain. Genitourinary: No dysuria or hematuria. All other 14 point ROS negative except the above Past Medical History Past Medical History: GERD/Reflux, GI Bleed, Hypertension, Thyroid Disorder History of Any Multi-Drug Resistant Organisms: None Reported Past Surgical History: Orthopedic Surgery Additional Past Surgical History / Comment(s): colonscopy, left knee Past Anesthesia/Blood Transfusion Reactions: No Reported Reaction Past Psychological History: No Psychological Hx Reported Smoking Status: Never smoker Past Alcohol Use History: None Reported Past Drug Use History: None Reported - Past Family History Father Family Medical History: Cancer Additional Family Medical History / Comment(s): Prostate cancer Mother Additional Family Medical History / Comment(s): CKD late stage, pt unsure of exact stage at this time. Medications and Allergies Home Medications Medication Instructions Recorded Confirmed Type Aspirin [Adult Low Dose Aspirin EC] 81 mg PO DAILY 10/23/15 12/12/21 History amLODIPine [Norvasc] 5 mg PO DAILY 10/23/15 12/12/21 History Acetaminophen Tab [Tylenol] 1,000 mg PO Q6H PRN 12/05/21 12/12/21 History Latanoprost [Latanoprost 0.005%] 1 drop BOTH EYES HS 12/05/21 12/12/21 History Levothyroxine Sodium [Synthroid] 100 mcg PO AC-BRKFST 12/05/21 12/12/21 History Pantoprazole [Protonix] 40 mg PO BID 56 Days #112 tab 12/07/21 12/12/21 Rx Sucralfate [Carafate] 1 gm PO AC-TID 56 Days #168 tablet 12/07/21 12/12/21 Rx Allergies Allergy/AdvReac Type Severity Reaction Status Date / Time No Known Allergies Allergy Verified 12/12/21 15:33 Physical Exam Vitals: Vital Signs Temp Pulse Pulse Resp BP BP Pulse Ox 12/12/21 20:00 98.2 F 97 16 121/72 96 12/12/21 17:50 98.4 F 98 16 125/67 98 12/12/21 15:57 97 16 113/51 98 12/12/21 14:00 98 18 99/74 97 12/12/21 13:00 99 16 108/65 99 12/12/21 12:34 87 16 118/61 96 12/12/21 11:12 98.2 F 109 H 16 94/60 99 Intake and Output 12/12/21 12/12/21 12/12/21 06:59 14:59 22:59 Other: # Voids 0 Weight 88.904 kg 88.904 kg PHYSICAL EXAMINATION: Patient is lying in the bed comfortably, no acute distress, awake alert and oriented.. HEENT: Normocephalic. Neck is supple. Pupils reactive. Nostrils clear. Oral cavity is moist. Neck reveals no JVD, carotid bruits, or thyromegaly. CHEST EXAMINATION: Trachea is central. Symmetrical expansion. Lung lomas clear to auscultation and percussion. CARDIAC: Normal S1, S2 with no gallops. No murmurs ABDOMEN: Soft. Bowel sounds present. Nontender. No organomegaly. No abdominal bruits. Extremities: reveal no edema. No clubbing or cyanosis Neurologically awake, alert, oriented x3 with well-coordinated movements. No focal deficits noted Skin: No rash or skin lesions. Psychiatric: Coperative. Nonsuicidal, Musculoskeletal: No joint swelling or deformity. Normal range of motion. Results CBC & Chem 7: 12/12/21 18:13 12/12/21 11:35 Labs: Abnormal Lab Results - Last 24 Hours (Table) 12/12/21 12/12/21 12/12/21 Range/Units 11:35 11:35 18:13 WBC 11.1 H (3.8-10.6) k/uL RBC 3.01 L 2.70 L (4.30-5.90) m/uL Hgb 8.5 L D 7.7 L (13.0-17.5) gm/dL Hct 25.9 L 23.7 L (39.0-53.0) % Neutrophils # 8.3 H (1.3-7.7) k/uL BUN 24 H (9-20) mg/dL Glucose 172 H (74-99) mg/dL Lipase 302 H (23-300) U/L Thrombosis Risk Factor Assmnt - DVT/VTE Prophylaxis DVT/VTE Prophylaxis: Mechanical Prophylaxis ordered - Choose All That Apply Each Risk Factor Represents 2 Points: Age 61-74 years Thrombosis Risk Factor Assessment Total Risk Factor Score: 2 Thrombosis Risk Factor Assessment Level: Low Risk Assessment and Plan Assessment: Acute blood loss anemia secondary to GI bleed probably lower GI bleed Symptomatic anemia Elevated lipase level with no complaints of abdominal pain. Recent history of GI bleed status post EGD showing diffuse gastritis and shallow antral ulcers and mild proximal duodenitis and healing ulceration of the first portion of the duodenum without stigmata of recent hemorrhage. Hypertension GERD Hypothyroidism DVT prophylaxis SCDs Plan: Patient returns IV hydration with normal saline and continue with Protonix and Carafate. Monitor H&H closely. Transfusion for hemoglobin level less than 7. We will hold blood pressure medications at this time. General surgery is on board. Patient will be started on clear liquid diet and follow-up closely. Time with Patient: Greater than 30
[2021-12-13] MEDS: SODIUM CHLORIDE 0.9% 1,000 ML IV SCH ×2 (06:02→11:17)
[2021-12-13] MEDS: SUCRALFATE 1 GM TAB PO SCH ×3 (06:50→16:34)
[2021-12-13] MEDS: LEVOTHYROXINE 100 MCG TAB PO SCH (06:51)
[2021-12-13] MEDS: ACETAMINOPHEN TAB 500 MG TAB PO PRN ×2 (06:51→19:47)
[2021-12-13] MEDS: PANTOPRAZOLE 40 MG/10 ML VIAL IVP SCH ×2 (06:52→19:47)
[2021-12-13] MEDS ORDERED: amLODIPine 5 MG TAB PO SCH (09:00)
[2021-12-13 11:41] LABS: Albumin 3.2 g/dL (3.8-4.9); Albumin/Globulin Ratio 1.33 (1.60-3.17); Anion Gap 8.1 mmol/L (10.00-18.00); BUN/Creat Ratio 13.33 Ratio (12.00-20.00); Blood Urea Nitrogen 14.8 mg/dL (9.0-27.0); Calcium 7.7 mg/dL (8.7-10.3); Globulin 2.4 g/dL (1.6-3.3); Non-African American GFR(CKD) 70.8 (60.0-200.0); Potassium 3.9 mmol/L (3.5-5.5); Total Bilirubin 0.3 mg/dL (0.30-1.20); Total Protein 5.5 g/dL (6.2-8.2)
[2021-12-13 12:28] LABS: HCT 21.5 % (39.6-50.0); HGB 6.6 g/dL (13.0-17.0); MCH 27.6 pg (27.0-32.0); MCHC 30.7 g/dL (32.0-37.0); Mean Platelet Volume 10.6 fL (9.5-12.2); NRBC Per 100 WBC 0 /100 WBCS (0.0-0.0); Platelet Count 246 X 10*3/uL (140-440); RBC 2.39 X 10*6/uL (4.40-5.60); RDW 15.3 % (11.5-14.5); WBC 8.65 X 10*3/uL (4.50-10.00)
[2021-12-13 12:30] LABS: Basophils # (A) 0.03 X 10*3/uL (0.00-0.10); Basophils % (A) 0.3 %; Eosinophils # (A) 0.26 X 10*3/uL (0.04-0.35); Immature Grans, Automated 0.3 %; Lymphocytes # (A) 1.58 X 10*3/uL (0.90-5.00); Lymphocytes % (A) 18.3 %; Monocytes # (A) 0.59 X 10*3/uL (0.20-1.00); Monocytes % (A) 6.8 %; Neutrophils # (A) 6.16 X 10*3/uL (1.80-7.70); Neutrophils % (A) 71.3 %
[2021-12-13 12:31] LABS: Rouleaux PRESENT
[2021-12-13] MEDS: HYDROmorphone 0.5 MG/0.5 ML SYRINGE IVP PRN ×2 (14:03→22:07)
--- NOTE | 2021-12-13 14:13 | P.CONS ---
History of Present Illness - Reason for Consult Consult date: 12/13/21 GI bleed Requesting physician: Margo Crandall - Chief Complaint Melena, fatigue - History of Present Illness 61-year-old male who presented to the emergency department yesterday with complaints of black stool. Patient was recently hospitalized 12/06/2021 through 12/07/2021 with complaints of melena, maroon stools as well as weakness and fatigue. The patient had been using significant amount of ibuprofen and naproxen for knee and thumb pain. Denies any anticoagulation. At that time he was seen by Dr. Catherine from general surgery who did an EGD with findings of diffuse gastritis of corpus with multiple surface erosions and shallow antral ulcers. Mild proximal duodenitis, 1 cm clean-based healing ulceration first portion of the duodenum without any high-risk stigmata for bleeding. Patient was started on Protonix 40 mg twice a day and Carafate 3 times daily. Patient states he was compliant and took his medications. States he still had some dark stool but not bloody on discharge. He stopped taking any NSAIDs. However again yesterday he started having dark stool turning the toilet water red. Denies any abdominal pain, no nausea or vomiting. On admission he was noted to have a hemoglobin of8.5 which was a drop from 11.3 on his discharge on 12/07/2021 he also had elevation in his BUN 24 on admission. Today he had a further drop in his hemoglobin to 6.6. He denies any bowel movements today. His last colonoscopy was 9 years ago which she states was normal. Review of Systems REVIEW OF SYSTEMS: CARDIOPULMONARY: No chest pain or shortness of breath. Gastrointestinal: No abdominal pain, some lower abdominal wall cramping yesterday. No nausea or vomiting. No hematemesis, coffee-ground emesis. Melena, no rectal bleeding GENITOURINARY: No dysuria or hematuria. MUSCULOSKELETAL: Reports normal range of motion. Left knee pain. SKIN: No rashes. No jaundice. ENDOCRINE: No chills, fevers. No excessive weight gain or loss. No polydipsia or polyuria. PSYCHIATRIC: Unremarkable. NEUROLOGY: No change in mental status. Denies dizziness, headache. ENT: Vision unremarkable. CONSTITUTIONAL: No recent weight loss. No fever, chills, night sweats. Past Medical History Past Medical History: GERD/Reflux, GI Bleed, Hypertension, Thyroid Disorder History of Any Multi-Drug Resistant Organisms: None Reported Past Surgical History: Orthopedic Surgery Additional Past Surgical History / Comment(s): colonscopy, left knee Past Anesthesia/Blood Transfusion Reactions: No Reported Reaction Past Psychological History: No Psychological Hx Reported Smoking Status: Never smoker Past Alcohol Use History: None Reported Past Drug Use History: None Reported - Past Family History Father Family Medical History: Cancer Additional Family Medical History / Comment(s): Prostate cancer Mother Additional Family Medical History / Comment(s): CKD late stage, pt unsure of e xact stage at this time. Medications and Allergies Home Medications Medication Instructions Recorded Confirmed Type Aspirin [Adult Low Dose Aspirin EC] 81 mg PO DAILY 10/23/15 12/12/21 History amLODIPine [Norvasc] 5 mg PO DAILY 10/23/15 12/12/21 History Acetaminophen Tab [Tylenol] 1,000 mg PO Q6H PRN 12/05/21 12/12/21 History Latanoprost [Latanoprost 0.005%] 1 drop BOTH EYES HS 12/05/21 12/12/21 History Levothyroxine Sodium [Synthroid] 100 mcg PO AC-BRKFST 12/05/21 12/12/21 History Pantoprazole [Protonix] 40 mg PO BID 56 Days #112 tab 12/07/21 12/12/21 Rx Sucralfate [Carafate] 1 gm PO AC-TID 56 Days #168 tablet 12/07/21 12/12/21 Rx Allergies Allergy/AdvReac Type Severity Reaction Status Date / Time No Known Allergies Allergy Verified 12/12/21 15:33 Physical Exam Vitals: Vital Signs Temp Pulse Pulse Resp BP BP Pulse Ox 12/13/21 13:50 98.8 F 99 16 121/65 97 12/13/21 08:04 98.1 F 95 17 122/68 94 L 12/13/21 08:00 98.1 F 95 17 122/68 94 L 12/13/21 06:50 17 12/13/21 02:00 98.2 F 91 16 102/57 94 L 12/12/21 20:00 98.2 F 97 16 121/72 96 12/12/21 17:50 98.4 F 98 16 125/67 98 12/12/21 15:57 97 16 113/51 98 Intake and Output 12/12/21 12/13/21 12/13/21 22:59 06:59 14:59 Intake Total 1560 0 Balance 1560 0 Intake: Intake, IV Titration 1560 Amount Sodium Chloride 0.9% 1, 1560 000 ml @ 130 mls/hr IV . Q7H42M [facility] Rx#:[id number] Blood Product 0 Rc As-1 Unit 0 [id number] Other: # Voids 0 1 Weight 88.904 kg General appearance: The patient is alert, oriented, appears in no acute distress. HET: Head is normocephalic and atraumatic. Conjunctiva pink. Sclera anicteric. Neck: Supple without lymphadenopathy. Trachea midline. Heart: S1 S2. Regular rate and rhythm. Lungs: Clear to auscultation. Abdomen: Soft, nontender, nondistended with bowel sounds. No guarding or rigidity. Skin: No rashes. No jaundice. Extremities: Normal skin color and turgor. No pedal edema. Neurological: No focal deficits. Alert and oriented x3. Results CBC & Chem 7: 12/13/21 08:08 12/13/21 08:08 Labs: Abnormal Lab Results - Last 24 Hours (Table) 12/12/21 12/12/21 12/13/21 Range/Units 11:35 18:13 08:08 RBC 2.70 L 2.39 L (4.30-5.90) m/uL Hgb 7.7 L 6.6 L* (13.0-17.5) gm/dL Hct 23.7 L 21.5 L (39.0-53.0) % MCHC 30.7 L (32.0-37.0) g/dL RDW 15.3 H (11.5-14.5) % Anion Gap (10.00-18.00) mmol/L Glucose (70-110) mg/dL Calcium (8.7-10.3) mg/dL Total Protein (6.2-8.2) g/dL Albumin (3.8-4.9) g/dL Albumin/Globulin Ratio (1.60-3.17) g/dL Crossmatch See Detail 12/13/21 Range/Units 08:08 RBC (4.30-5.90) m/uL Hgb (13.0-17.5) gm/dL Hct (39.0-53.0) % MCHC (32.0-37.0) g/dL RDW (11.5-14.5) % Anion Gap 8.10 L (10.00-18.00) mmol/L Glucose 194 H (70-110) mg/dL Calcium 7.7 L (8.7-10.3) mg/dL Total Protein 5.5 L (6.2-8.2) g/dL Albumin 3.2 L (3.8-4.9) g/dL Albumin/Globulin Ratio 1.33 L (1.60-3.17) g/dL Crossmatch Assessment and Plan (1) GIB (gastrointestinal bleeding) Narrative/Plan: 61-year-old male who was recently hospitalized approximately one week ago and seen by general surgery Dr. Catherine for dark-colored stools. Patient had been taking increased amounts of ibuprofen and naproxen for knee and hand pain. He underwent he had EGD that showed diffuse gastritis with multiple erosions, shallow antral ulcer, mild proximal jejunal tinnitus and a clean-based healing u lcer in the first portion of the duodenum without any stigmata for high risk for bleed. Patient was sent home on Protonix 40 mg twice a day as well as Carafate however returns back with continued melena with symptomatic anemia. Drop in hemoglobin to 6.6 today. Will transfuse, and schedule patient for repeat EGD tomorrow. Current Visit: Yes Status: Acute Code(s): K92.2 - GASTROINTESTINAL HEMORRHAGE, UNSPECIFIED SNOMED Code(s): 84039564 (2) NSAID long-term use Current Visit: Yes Status: Acute Code(s): Z79.1 - [facility] (CURRENT) USE OF NON-STEROIDAL NON-INFLAM (NSAID) SNOMED Code(s): 792167062 Plan: 1. Clear liquid diet 2. Nothing by mouth after midnight 3. Daily CBC, transfuse for hemoglobin less than 7 4. 1 unit of PRBC ordered 5. Continue Protonix 40 mg twice a day 6. Continue Carafate 7. Avoid NSAIDs 8. Patient scheduled for EGD tomorrow Thank you for this consultation, we will continue to follow. Dr. Ania Kline I agree with the dictator's note, documented as a scribe by Argelia Montes.
[2021-12-13 14:38] LABS: INR 0.94 (0.90-1.11); Prothrombin Time 10.7 sec (9.9-11.9)
--- NOTE | 2021-12-13 16:38 | P.PN ---
Subjective Progress Note Date: 12/13/21 Patient seen and examined at bedside. States that he did have some clots per rectum this morning. Tolerating clear liquid diet. No additional bleeding. Objective - Vital Signs Vital signs: Vital Signs Temp 98.7 F 12/13/21 15:42 Pulse 90 12/13/21 15:42 Resp 18 12/13/21 15:42 BP 121/71 12/13/21 15:42 Pulse Ox 97 12/13/21 15:42 FiO2 Intake & Output 12/12/21 12/13/21 12/13/21 18:59 06:59 18:59 Intake Total 1560 310 Balance 1560 310 Weight 88.904 kg Intake: Intake, IV Titration 1560 Amount Sodium Chloride 0.9% 1, 1560 000 ml @ 130 mls/hr IV . Q7H42M [facility] Rx#:[id number] Blood Product 310 Rc As-1 Unit 310 [id number] Other: # Voids 0 1 - Constitutional General appearance: Present: cooperative - Gastrointestinal Gastrointestinal Comment(s): Soft, nontender, nondistended, no rebound, no guarding - Psychiatric Psychiatric: Present: A&O x's 3 - Labs CBC & Chem 7: 12/13/21 08:08 12/13/21 08:08 Labs: Abnormal Lab Results - Last 24 Hours (Table) 12/12/21 12/12/21 12/13/21 Range/Units 11:35 18:13 08:08 RBC 2.70 L 2.39 L (4.30-5.90) m/uL Hgb 7.7 L 6.6 L* (13.0-17.5) gm/dL Hct 23.7 L 21.5 L (39.0-53.0) % MCHC 30.7 L (32.0-37.0) g/dL RDW 15.3 H (11.5-14.5) % Anion Gap (10.00-18.00) mmol/L Glucose (70-110) mg/dL Calcium (8.7-10.3) mg/dL Total Protein (6.2-8.2) g/dL Albumin (3.8-4.9) g/dL Albumin/Globulin Ratio (1.60-3.17) g/dL Crossmatch See Detail 12/13/21 Range/Units 08:08 RBC (4.30-5.90) m/uL Hgb (13.0-17.5) gm/dL Hct (39.0-53.0) % MCHC (32.0-37.0) g/dL RDW (11.5-14.5) % Anion Gap 8.10 L (10.00-18.00) mmol/L Glucose 194 H (70-110) mg/dL Calcium 7.7 L (8.7-10.3) mg/dL Total Protein 5.5 L (6.2-8.2) g/dL Albumin 3.2 L (3.8-4.9) g/dL Albumin/Globulin Ratio 1.33 L (1.60-3.17) g/dL Crossmatch Assessment and Plan Plan: 61-year-old male with recurrent GI bleed. He did have upper endoscopy a little over a week ago. With concern for recurrent GI bleed, I do recommend gastroenterology consultation. They are available this week in the hospital and consult has been placed. Further endoscopic evaluation to be decided upon by GI.
[2021-12-13] MEDS: LATANOPROST 0.005% OPHTH DROPS 2.5 ML BTL BOTH EYES SCH (19:47)
--- NOTE | 2021-12-14 07:32 | PN ---
PROGRESS NOTE SUBJECTIVE: This is a 61-year-old gentleman admitted with GI bleed, is being followed by Surgery, who is planning re-scope and as well as upper and lower GI scopes at this time. The hemoglobin is 6.6 today. Transfusion has been arranged. No chest pain. No palpitations. MMODL / IJN: [id number] /
--- NOTE | 2021-12-14 07:34 | PN ---
PROGRESS NOTE SUBJECTIVE: This is a 61-year-old gentleman who was admitted for GI bleed, has been planning for re- scope. No chest pain. No palpitation. PHYSICAL EXAMINATION: VITAL SIGNS: Pulse is 103, blood pressure 130/84, respirations 18. CHEST: Clear to auscultation. ABDOMEN: Soft, nontender. NERVOUS SYSTEM: No focal deficits. LABS: Creatinine 6.6. ASSESSMENT: 1. Acute blood loss anemia secondary to gastrointestinal bleed. 2. Symptomatic anemia. 3. Elevated lipase. 4. Recent history of GI bleed, EGD showing diffuse gastritis and shallow antral ulcers and duodenitis. 5. Hypertension. 6. Gastroesophageal reflux disease. 7. Hypothyroidism. RECOMMENDATION AND DISCUSSION: Recommend to continue current medications and symptomatic treatment. Continue with proton pump inhibitors. Closely follow with Surgery. Repeat labs. Transfusion. Further recommendations to follow. MMEDITHL / LEEANNEN: [id number] /
[2021-12-14] MEDS: LEVOTHYROXINE 100 MCG TAB PO SCH (08:32)
[2021-12-14] MEDS: SUCRALFATE 1 GM TAB PO SCH ×3 (08:32→17:17)
[2021-12-14] MEDS: PANTOPRAZOLE 40 MG/10 ML VIAL IVP SCH ×2 (08:33→21:23)
[2021-12-14] MEDS: HYDROmorphone 0.5 MG/0.5 ML SYRINGE IVP PRN ×3 (08:34→21:23)
[2021-12-14 10:38] LABS: Basophils # (A) 0.03 X 10*3/uL (0.00-0.10); Basophils % (A) 0.4 %; Eosinophils % (A) 2.3 %; HGB 7.9 g/dL (13.0-17.0); Immature Grans, Automated 0.6 %; Lymphocytes # (A) 1.51 X 10*3/uL (0.90-5.00); Lymphocytes % (A) 17.6 %; MCH 27.9 pg (27.0-32.0); MCHC 31.6 g/dL (32.0-37.0); MCV 88.3 fL (80.0-97.0); Monocytes # (A) 0.83 X 10*3/uL (0.20-1.00); Monocytes % (A) 9.7 %; NRBC Per 100 WBC 0 /100 WBCS (0.0-0.0); Neutrophils # (A) 5.95 X 10*3/uL (1.80-7.70); Neutrophils % (A) 69.4 %; Platelet Count 266 X 10*3/uL (140-440); RBC 2.83 X 10*6/uL (4.40-5.60); RDW 15.3 % (11.5-14.5); WBC 8.57 X 10*3/uL (4.50-10.00)
[2021-12-14 10:45] LABS: African American GFR (CKD) 88.8 (60.0-200.0); Albumin 3.3 g/dL (3.8-4.9); Albumin/Globulin Ratio 1.24 (1.60-3.17); Anion Gap 4.1 mmol/L (10.00-18.00); BUN/Creat Ratio 9.21 Ratio (12.00-20.00); Blood Urea Nitrogen 9.6 mg/dL (9.0-27.0); Carbon Dioxide 28.1 mmol/L (20.0-27.5); Globulin 2.7 g/dL (1.6-3.3); Non-African American GFR(CKD) 76.6 (60.0-200.0); Potassium 3.9 mmol/L (3.5-5.5); Total Bilirubin 0.4 mg/dL (0.30-1.20)
[2021-12-14] MEDS ORDERED: LIDOCAINE 2% INJ 20 MG/ML (2 ML VIAL) ONE (11:53)
[2021-12-14] MEDS ORDERED: PROPOFOL 10 MG/ML 20 ML VIAL IV ONE (11:53)
[2021-12-14] MEDS ORDERED: PHENYLEPHRINE-0.9% NACL SYG 1,000 MCG/10 ML SYRINGE ONE (11:53)
[2021-12-14] MEDS ORDERED: SODIUM CHLORIDE 0.9% 1,000 ML IV ONE ×2 (11:56)
--- NOTE | 2021-12-14 12:08 | P.PCN ---
Date of Procedure: 12/14/21 Procedure(s) Performed: BRIEF HISTORY: Patient is a 61-year-old, pleasant, white male admitted hospital with anemia and black tarry stools. Patient was admitted a week ago for the same reason and underwent an upper endoscopy by Dr. Catherine and was noted to have a small duodenal ulcer and antral erosive gastritis with no active bleeding. He was discharged home and he was readmitted with ongoing bleeding and dropped hemoglobin to 6.3 g/dL requiring 2 units of PRBC transfusion. He scheduled for repeat upper endoscopy today PROCEDURE PERFORMED: Esophagogastroduodenoscopy. PREOPERATIVE DIAGNOSIS: Acute upper GI bleed. IV sedation per anesthesia. PROCEDURE: After informed consent was obtained, the patient was brought into the endoscopy unit. IV sedation was administered by Anesthesia under continuous monitoring. Initially the Olympus GIF-140 video endoscope was inserted into the mouth. Esophagus intubated without any difficulty. It was gradually advanced into the stomach and duodenum and carefully examined. The bulb and the second part of the duodenum appeared normal had mild patchy areas of erythema but no ulcerations noted. Bleeding identified.. The scope at this time was withdrawn to the stomach, adequately insufflated with air, and upon careful examination, mucosa of the antrum had a couple of scattered erosions but no active bleeding seen. The, body, cardia and the fundus appeared normal. The scope was then withdrawn into the esophagus. The GE junction was located at 39 cm from the incisors. The esophagus appeared normal. There were no erosions or ulcerations seen and the patient tolerated the procedure well. IMPRESSION: 1. Few scattered antral erosions with no active bleeding. 2 Miild duodenitis. 3. No evidence of peptic ulcer disease or active bleeding identified RECOMMENDATIONS: The findings of this examination were discussed with the patient .as well as his family. He'll be started on clear liquid diet. Continue Protonix daily. We'll schedule for colonoscopy tomorrow.
[2021-12-14] MEDS: SODIUM CHLORIDE 0.9% 1,000 ML IV SCH ×2 (12:31→14:47)
--- NOTE | 2021-12-14 15:24 | P.PN ---
Subjective Progress Note Date: 12/14/21 This is a 61-year-old male who was admitted for GI bleed and undergoing EGD today with possible colonoscopy prep with GI Dr. Kline following. Hemoglobin is currently 7.9 today and recommend repeat labs in the a.m. Will await endoscopic report and follow-up with GI. Patient is currently maintained on IV Protonix and currently nothing by mouth for the procedure. Patient also continues with some left knee pain and follows with Dr. Gilliland outpatient for this and has been having increased pain and difficulty walking since hospitalized. Will consult orthopedics. Patient is currently afebrile denies chest pain or shortness of breath. Patient is nothing by mouth with no reports of nausea vomiting and most likely will start bowel prep in the morning for colonoscopy. Review of systems: Constitutional: No reports of fatigue, fever, or chills Cardiovascular: No reports of chest pain or palpitations Respiratory: No reports of shortness of breath or cough GI: No reports of nausea, no reports of of vomiting, : No reports of dysuria or retention Neurovascular: reports of generalized weakness, reports left knee pain All medications have been reviewed PHYSICAL EXAMINATION: GENERAL: The patient is alert and oriented x4, Well developed, well nourished. HEENT: Pupils are round and equally reacting to light. EOMI. no scleral icterus. No conjunctival pallor. Normocephalic, atraumatic. No pharyngeal erythema. No thyromegaly. CARDIOVASCULAR: S1 and S2 muffled PULMONARY: diminished breath sounds bilaterally with no wheezing or rhonchi noted. ABDOMEN: soft. Nontender on exam. obese. non-distended, normoactive bowel sounds. No palpable organomegaly. MUSCULOSKELETAL: No joint swelling or deformity. EXTREMITIES: No cyanosis, clubbing, or pedal edema. NEUROLOGICAL: Gross neurological examination did not reveal any focal deficits. Diffuse weakness SKIN: No rashes. Assessment: Acute blood loss anemia secondary to gastrointestinal bleed Symptomatic anemia Elevated lipase Recent history of GI bleed, EGD showing diffuse gastritis and shallow antral ulcers and duodenitis History of hypertension Gastroesophageal reflux disease Hypothyroidism Left knee pain GI prophylaxis DVT prophylaxis Full code Plan: Recommend to continue with current medications and management with GI following. Orthopedics consulted and pending for left knee pain and gait dysfunction. P atient is nothing by mouth currently and scheduled to undergo upper endoscopy EGD with GI today and possible initiation of bowel prep to prepare for colonoscopy on . Hemoglobin is currently 7.9 today and recommend repeat labs in a.m. Patient is continued on Protonix IV twice daily and will continue. Transfuse if hemoglobin is less than 7. Due to multiple, with medical issues, prognosis is guarded. The impression and plan of care has been dictated by Margo Crandall, nurse practitioner as directed. Dr. Dom MD I have performed a history and examination and MDM of this patient, discussed the same with the dictator, and agree with the dictator's assessment and plan as written ,documented as a scribe. Based on total visit time, I have performed more than 50% of the visit. Any additional findings or plans will be noted. Objective - Vital Signs Vital signs: Vital Signs Temp 99.7 F H 12/14/21 13:58 Pulse 93 12/14/21 13:58 Resp 18 12/14/21 13:58 BP 131/73 12/14/21 13:58 Pulse Ox 96 12/14/21 13:58 FiO2 Intake & Output 12/13/21 12/14/21 12/14/21 18:59 06:59 18:59 Intake Total 2470 1200 200 Balance 2470 1200 200 Intake: IV 200 Intake, IV Titration 900 Amount Sodium Chloride 0.9% 1, 900 000 ml @ 75 mls/hr IV . [id number] Rx#:[id number] Oral 2160 300 Blood Product 310 Rc As-1 Unit 310 [id number] Other: Voiding Method Toilet # Voids 3 2 # Bowel Movements 0 - Labs CBC & Chem 7: 12/14/21 06:57 12/14/21 06:57 Labs: Abnormal Lab Results - Last 24 Hours (Table) 12/12/21 12/14/21 12/14/21 Range/Units 11:35 06:57 06:57 RBC 2.83 L (4.40-5.60) X 10*6/uL Hgb 7.9 L (13.0-17.0) g/dL Hct 25.0 L (39.6-50.0) % MCHC 31.6 L (32.0-37.0) g/dL RDW 15.3 H (11.5-14.5) % Immature Gran # 0.05 H (0.00-0.04) X 10*3/uL Sodium 134 L (135-145) mmol/L Carbon Dioxide 28.1 H (20.0-27.5) mmol/L Anion Gap 4.10 L (10.00-18.00) mmol/L BUN/Creatinine Ratio 9.21 L (12.00-20.00) Ratio Glucose 115 H (70-110) mg/dL Calcium 8.0 L (8.7-10.3) mg/dL Total Protein 6.0 L (6.2-8.2) g/dL Albumin 3.3 L (3.8-4.9) g/dL Albumin/Globulin Ratio 1.24 L (1.60-3.17) g/dL Crossmatch See Detail
[2021-12-14] MEDS: LATANOPROST 0.005% OPHTH DROPS 2.5 ML BTL BOTH EYES SCH (21:23)
[2021-12-15] MEDS: HYDROmorphone 0.5 MG/0.5 ML SYRINGE IVP PRN ×4 (03:11→23:33)
[2021-12-15] MEDS: SODIUM CHLORIDE 0.9% 1,000 ML IV SCH ×2 (04:31→16:05)
[2021-12-15 08:51] LABS: Basophils # (A) 0.02 X 10*3/uL (0.00-0.10); Basophils % (A) 0.2 %; Eosinophils # (A) 0.12 X 10*3/uL (0.04-0.35); Eosinophils % (A) 1.4 %; HCT 25.2 % (39.6-50.0); HGB 7.9 g/dL (13.0-17.0); Immature Grans, Automated 0.6 %; Lymphocytes # (A) 1.76 X 10*3/uL (0.90-5.00); Lymphocytes % (A) 20.6 %; MCH 27.7 pg (27.0-32.0); MCHC 31.3 g/dL (32.0-37.0); MCV 88.4 fL (80.0-97.0); Mean Platelet Volume 10.1 fL (9.5-12.2); Monocytes # (A) 0.88 X 10*3/uL (0.20-1.00); Monocytes % (A) 10.3 %; NRBC Per 100 WBC 0 /100 WBCS (0.0-0.0); Neutrophils # (A) 5.72 X 10*3/uL (1.80-7.70); Neutrophils % (A) 66.9 %; Platelet Count 287 X 10*3/uL (140-440); RBC 2.85 X 10*6/uL (4.40-5.60); RDW 15.1 % (11.5-14.5); WBC 8.55 X 10*3/uL (4.50-10.00)
[2021-12-15 09:07] LABS: African American GFR (CKD) 93.1 (60.0-200.0); Anion Gap 10.4 mmol/L (10.00-18.00); BUN/Creat Ratio 9.8 Ratio (12.00-20.00); Blood Urea Nitrogen 9.8 mg/dL (9.0-27.0); Calcium 7.9 mg/dL (8.7-10.3); Carbon Dioxide 23.6 mmol/L (20.0-27.5); Non-African American GFR(CKD) 80.3 (60.0-200.0); Potassium 3.9 mmol/L (3.5-5.5)
[2021-12-15] MEDS: LEVOTHYROXINE 100 MCG TAB PO SCH (09:08)
[2021-12-15] MEDS: SUCRALFATE 1 GM TAB PO SCH ×3 (09:08→17:27)
[2021-12-15] MEDS: PANTOPRAZOLE 40 MG/10 ML VIAL IVP SCH ×2 (09:14→22:03)
--- NOTE | 2021-12-15 10:46 | P.CNOR ---
History of Present Illness - [facility] Consult date: 12/15/21 Consult reason: joint pain (left knee pain) History of present illness: patient is a 61-year-old male who has been in and out of the hospital to [facility] with regards to a GI bleed. He's had a few different procedures the last 2 weeks and is scheduled for a repeat colonoscopy later today. patient also had an ER visit towards the end of October of this year with regards to left knee pain. Patient has had a previous arthroscopic surgery by Dr. Gilliland back in 2015. Patient was actually able to follow-up with Dr. Gilliland in the office 11/23/2021. Patient had underwent a aspiration with cortisone injection, he is also scheduled for an MRI. Patient was examined today at bedside, he is resting comfortably. He notes notable discomfort in the left knee when he attempts to bend it. He has a notable effusion. Patient is not taking any anti-inflammatories at this time due to his GI bleed. He has been utilizing Tylenol. He's had Dilaudid also in the hospital which does help. He's been utilizing a walker for ambulation. He is scheduled for an MRI of that left knee 12/29/2021. He has no other orthopedic complaints at this time Review of Systems Constitutional: Reports as per [facility] Past Medical History Past Medical History: GERD/Reflux, GI Bleed, Hypertension, Thyroid Disorder History of Any Multi-Drug Resistant Organisms: None Reported Past Surgical History: Orthopedic Surgery Additional Past Surgical History / Comment(s): colonscopy, left knee Past Anesthesia/Blood Transfusion Reactions: No Reported Reaction Past Psychological History: No Psychological Hx Reported Smoking Status: Never smoker Past Alcohol Use History: None Reported Past Drug Use History: None Reported - Past Family History Father Family Medical History: Cancer Additional Family Medical History / Comment(s): Prostate cancer Mother Additional Family Medical History / Comment(s): CKD late stage, pt unsure of ex act stage at this time. Medications and Allergies Home Medications Medication Instructions Recorded Confirmed Type Aspirin [Adult Low Dose Aspirin EC] 81 mg PO DAILY 10/23/15 12/12/21 History amLODIPine [Norvasc] 5 mg PO DAILY 10/23/15 12/12/21 History Acetaminophen Tab [Tylenol] 1,000 mg PO Q6H PRN 12/05/21 12/12/21 History Latanoprost [Latanoprost 0.005%] 1 drop BOTH EYES HS 12/05/21 12/12/21 History Levothyroxine Sodium [Synthroid] 100 mcg PO AC-BRKFST 12/05/21 12/12/21 History Pantoprazole [Protonix] 40 mg PO BID 56 Days #112 tab 12/07/21 12/12/21 Rx Sucralfate [Carafate] 1 gm PO AC-TID 56 Days #168 tablet 12/07/21 12/12/21 Rx Allergies Allergy/AdvReac Type Severity Reaction Status Date / Time No Known Allergies Allergy Verified 12/12/21 15:33 Physical Examination Left lower extremity: No erythema or increase in skin warmth appreciated. No open lesions or sores are visualized. There is an obvious effusion present Range of motion is limited, has no lack of extension at this time. Flexion is limited due to pain. logroll maneuver the extremity reproduces no groin pain. He does have significant tenderness along the lateral joint line. No tenderness with palpation along the medial joint line. no tenderness with palpation to the lower extremity near the calf, lower leg, foot or ankle. Knee is stable to varus and valgus force, no obvious instability Calf is soft, no tenderness with palpation Plantar flexion, dorsiflexion, EHL, FHL are intact Sensory exam to light touch is intact in the extremity, dorsalis pedis pulses 2+ Results - Labs Labs: Abnormal Lab Results - Last 24 Hours (Table) 12/14/21 12/14/21 12/15/21 Range/Units 06:57 06:57 05:55 RBC 2.83 L 2.85 L (4.40-5.60) X 10*6/uL Hgb 7.9 L 7.9 L (13.0-17.0) g/dL Hct 25.0 L 25.2 L (39.6-50.0) % MCHC 31.6 L 31.3 L (32.0-37.0) g/dL RDW 15.3 H 15.1 H (11.5-14.5) % Immature Gran # 0.05 H 0.05 H (0.00-0.04) X 10*3/uL Sodium 134 L (135-145) mmol/L Carbon Dioxide 28.1 H (20.0-27.5) mmol/L Anion Gap 4.10 L (10.00-18.00) mmol/L BUN/Creatinine Ratio 9.21 L (12.00-20.00) Ratio Glucose 115 H (70-110) mg/dL Calcium 8.0 L (8.7-10.3) mg/dL Total Protein 6.0 L (6.2-8.2) g/dL Albumin 3.3 L (3.8-4.9) g/dL Albumin/Globulin Ratio 1.24 L (1.60-3.17) g/dL 12/15/21 Range/Units 05:55 RBC (4.40-5.60) X 10*6/uL Hgb (13.0-17.0) g/dL Hct (39.6-50.0) % MCHC (32.0-37.0) g/dL RDW (11.5-14.5) % Immature Gran # (0.00-0.04) X 10*3/uL Sodium (135-145) mmol/L Carbon Dioxide (20.0-27.5) mmol/L Anion Gap (10.00-18.00) mmol/L BUN/Creatinine Ratio 9.80 L (12.00-20.00) Ratio Glucose (70-110) mg/dL Calcium 7.9 L (8.7-10.3) mg/dL Total Protein (6.2-8.2) g/dL Albumin (3.8-4.9) g/dL Albumin/Globulin Ratio (1.60-3.17) g/dL H & H 12/12/21 12/12/21 12/13/21 Range/Units 11:35 18:13 08:08 Hgb 8.5 L D 7.7 L 6.6 L* (13.0-17.5) gm/dL Hct 25.9 L 23.7 L 21.5 L (39.0-53.0) % 12/14/21 12/15/21 Range/Units 06:57 05:55 Hgb 7.9 L 7.9 L (13.0-17.5) gm/dL Hct 25.0 L 25.2 L (39.0-53.0) % Coagulation 12/12/21 12/13/21 Range/Units 11:35 08:08 INR 0.9 0.94 (<1.2) Result Diagrams: 12/15/21 05:55 12/15/21 05:55 - Diagnostic results Knee x-ray: report reviewed, image reviewed (x-rays of the left knee were reviewed from the ER visit on 11/22/2021. No acute fractures or dislocations. Osteoarthritic changes were present along the medial joint space and patellofemoral joint space joint space narrowing) Assessment and Plan Assessment: Left knee pain/effusion Left knee osteoarthritis Left knee internal derangement GI bleed Plan: I was able to discuss the case, this including no physical exam findings and imaging studies my attending Dr. Gilliland. No orthopedic surgical intervention is recommended at this time Pain control, patient is unable take anti-inflammatories at this time. Recommend icing and elevating the knee around the clock along with use of Tyle nol. Recommend weight-bear as tolerated, utilize a walker/crutches as needed. GI and DVT prophylaxis per primary medical service We did discuss the possibility of an aspiration with cortisone injection, we will hold off due to the fact he had a recent injection and aspiration in the outpatient setting Patient advised to follow-up in the outpatient setting after scheduled MRI to discuss further treatment options Please contact orthopedic services with any questions regarding this patient Time with Patient: Less than 30
--- NOTE | 2021-12-15 14:03 | P.PN ---
Subjective Progress Note Date: 12/15/21 Principal diagnosis: GI bleed 61-year-old male who presented to the emergency department yesterday with complaints of black stool. Patient was recently hospitalized 12/06/2021 through 12/07/2021 with complaints of melena, maroon stools as well as weakness and fatigue. The patient had been using significant amount of ibuprofen and naproxen for knee and thumb pain. Denies any anticoagulation. At that time he was seen by Dr. Catherine from general surgery who did an EGD with findings of diffuse gastritis of corpus with multiple surface erosions and shallow antral ulcers. Mild proximal duodenitis, 1 cm clean-based healing ulceration first portion of the duodenum without any high-risk stigmata for bleeding. Patient was started on Protonix 40 mg twice a day and Carafate 3 times daily. Patient states he was compliant and took his medications. States he still had some dark stool but not bloody on discharge. He stopped taking any NSAIDs. However again yesterday he started having dark stool turning the toilet water red. Denies any abdominal pain, no nausea or vomiting. On admission he was noted to have a hemoglobin of8.5 which was a drop from 11.3 on his discharge on 12/07/2021 he also had elevation in his BUN 24 on admission. Today he had a further drop in his hemoglobin to 6.6. He denies any bowel movements today. His last colonoscopy was 9 years ago which she states was normal. 12/15/2021: Patient seen and examined as a follow-up for melena. Yesterday he underwent EGD with findings of few scattered antral erosions with no active bleeding, mild duodenitis, no evidence of peptic ulcer disease or active bleeding identified. Patient was supposed to undergo colonoscopy today however bowel prep was not completed. Plan for tomorrow. Denies any further bowel movement today. Hemoglobin stable at 7.9. Objective - Vital Signs Vital signs: Vital Signs Temp 97.7 F 12/15/21 08:00 Pulse 90 12/15/21 08:00 Resp 18 12/15/21 10:03 BP 109/64 12/15/21 08:00 Pulse Ox 92 L 12/15/21 08:00 FiO2 Intake & Output 12/14/21 12/15/21 12/15/21 18:59 06:59 18:59 Intake Total 200 Balance 200 Intake: IV 200 Other: Voiding Method Toilet Toilet # Voids 4 2 2 - Exam General appearance: The patient is alert, oriented, appears in no acute distress. HET: Head is normocephalic and atraumatic. Conjunctiva pink. Sclera anicteric. Neck: Supple without lymphadenopathy. Abdomen: Soft, nontender, nondistended with bowel sounds. No guarding or rigidity. Extremities: Normal skin color and turgor. No pedal edema Skin: No rashes, no jaundice Neurological: No focal deficits. Alert and oriented. - Labs CBC & Chem 7: 12/15/21 05:55 12/15/21 05:55 Labs: Abnormal Lab Results - Last 24 Hours (Table) 12/15/21 12/15/21 Range/Units 05:55 05:55 RBC 2.85 L (4.40-5.60) X 10*6/uL Hgb 7.9 L (13.0-17.0) g/dL Hct 25.2 L (39.6-50.0) % MCHC 31.3 L (32.0-37.0) g/dL RDW 15.1 H (11.5-14.5) % Immature Gran # 0.05 H (0.00-0.04) X 10*3/uL BUN/Creatinine Ratio 9.80 L (12.00-20.00) Ratio Calcium 7.9 L (8.7-10.3) mg/dL Assessment and Plan (1) GIB (gastrointestinal bleeding) Narrative/Plan: 61-year-old male who was recently hospitalized approximately one week ago and seen by general surgery Dr. Catherine for dark-colored stools. Patient had been taking increased amounts of ibuprofen and naproxen for knee and hand pain. He underwent he had EGD that showed diffuse gastritis with multiple erosions, shallow antral ulcer, mild proximal jejunal tinnitus and a clean-based healing ulcer in the first portion of the duodenum without any stigmata for high risk for bleed. Patient was sent home on Protonix 40 mg twice a day as well as Carafate however returns back with continued melena with symptomatic anemia. Drop in hemoglobin to 6.6 today. Will transfuse, and schedule patient for repeat EGD tomorrow. Current Visit: Yes Status: Acute Code(s): K92.2 - GASTROINTESTINAL HEMORRHAGE, UNSPECIFIED SNOMED Code(s): 50132648 (2) NSAID long-term use Current Visit: Yes Status: Acute Code(s): Z79.1 - ARCHITECT MANAGER (CURRENT) USE OF NON-STEROIDAL NON-INFLAM (NSAID) SNOMED Code(s): 639974010 Plan: 1. Clear liquid diet 2. Nothing by mouth after midnight 3. Daily CBC, transfuse for hemoglobin less than 7 4. Bowel prep this evening 5. Continue Protonix 40 mg twice a day 6. Continue Carafate 7. Avoid NSAIDs 8. Patient underwent EGD with findings of no active bleeding, will proceed with colonoscopy tomorrow. Thank you for this consultation, we will continue to follow. Dr. Ania Kline I agree with the dictator's note, documented as a scribe by Argelia Montes.
[2021-12-15] MEDS ORDERED: PEG 3350 (236 GM/BTL) + LYTES 4,000 ML BOTTLE PO ONE (17:00)
[2021-12-15] MEDS: HYDROcodone/APAP 5-325MG 1 EACH TAB PO PRN (17:27)
[2021-12-15] MEDS: LATANOPROST 0.005% OPHTH DROPS 2.5 ML BTL BOTH EYES SCH (22:04)
[2021-12-16 03:28] VITALS: RESP 17
--- NOTE | 2021-12-16 05:53 | P.PN ---
Subjective Progress Note Date: 12/15/21 This is a 61-year-old male who was admitted for GI bleed and undergoing EGD today with possible colonoscopy prep with GI Dr. Kline following. Hemoglobin is currently 7.9 today and recommend repeat labs in the a.m. Will await endoscopic report and follow-up with GI. Patient is currently maintained on IV Protonix and currently nothing by mouth for the procedure. Patient also continues with some left knee pain and follows with Dr. Gilliland outpatient for this and has been having increased pain and difficulty walking since hospitalized. Will consult orthopedics. Patient is currently afebrile denies chest pain or shortness of breath. Patient is nothing by mouth with no reports of nausea vomiting and most likely will start bowel prep in the morning for colonoscopy. 12/15/2021 Patient is seen in follow up this morning. Underwent EGD showing antral ulcers with no active bleeding. GI following and was scheduled for colonoscopy today although has not completed the bowel prep. Colonoscopy scheduled for tomorrow. Will start bowel prep and be NPO at midnight. Patient continues with left knee pain and difficulty walking and orthopedics saw the patient recommending outpatient follow up once medically cleared. Continue with pain management and will add norco. Patient has been receiving IV dilaudid and encouraged avoiding IV pain medications. Patient hemoglobin remains 7.9 today and will follow up with repeat labs. Review of systems: Constitutional: No reports of fatigue, fever, or chills Cardiovascular: No reports of chest pain or palpitations Respiratory: No reports of shortness of breath or cough GI: No reports of nausea, no reports of of vomiting, : No reports of dysuria or retention Neurovascular: reports of generalized weakness, reports left knee pain All medications have been reviewed PHYSICAL EXAMINATION: GENERAL: The patient is alert and oriented x4, Well developed, well nourished. HEENT: Pupils are round and equally reacting to light. EOMI. no scleral icterus. No conjunctival pallor. Normocephalic, atraumatic. No pharyngeal erythema. No thyromegaly. CARDIOVASCULAR: S1 and S2 muffled PULMONARY: diminished breath sounds bilaterally with no wheezing or rhonchi noted. ABDOMEN: soft. Nontender on exam. obese. non-distended, normoactive bowel so unds. No palpable organomegaly. MUSCULOSKELETAL: No joint swelling or deformity. reports left knee pain on palpation EXTREMITIES: No cyanosis, clubbing, or pedal edema. NEUROLOGICAL: Gross neurological examination did not reveal any focal deficits. Diffuse weakness SKIN: No rashes. Assessment: Acute blood loss anemia secondary to gastrointestinal bleed Symptomatic anemia Elevated lipase Recent history of GI bleed, EGD showing diffuse gastritis and shallow antral ulcers and duodenitis History of hypertension Gastroesophageal reflux disease Hypothyroidism Left knee pain GI prophylaxis DVT prophylaxis Full code Plan: Recommend to continue with current medications and management with GI following. Orthopedics consulted and pending for left knee pain and gait dysfunction. Patient is nothing by mouth currently and scheduled to undergo colonoscopy although never had the golytely prep and will tentatively be scheduled for am. Underwent upper endoscopy EGD with GI showing antral erosions with no active bleeding noted. Hemoglobin is currently 7.9 today and recommend repeat labs in a.m. Patient is continued on Protonix IV twice daily and will continue. Transfuse if hemoglobin is less than 7. Due to multiple, with medical issues, prognosis is guarded. The impression and plan of care has been dictated by Margo Crandall, nurse practitioner as directed. Dr. Dom MD I have performed a history and examination and MDM of this patient, discussed the same with the dictator, and agree with the dictator's assessment and plan as written ,documented as a scribe. Based on total visit time, I have performed more than 50% of the visit. Any additional findings or plans will be noted. Objective - Vital Signs Vital signs: Vital Signs Temp 100.0 F H 12/15/21 01:40 Pulse 101 H 12/15/21 01:40 Resp 17 12/15/21 01:40 BP 125/68 12/15/21 01:40 Pulse Ox 92 L 12/15/21 01:40 FiO2 Intake & Output 12/14/21 12/15/21 12/15/21 18:59 06:59 18:59 Intake Total 200 Balance 200 Intake: IV 200 Other: Voiding Method Toilet # Voids 4 2 - Labs CBC & Chem 7: 12/15/21 05:55 12/15/21 05:55 Labs: Abnormal Lab Results - Last 24 Hours (Table) 12/14/21 12/14/21 12/15/21 Range/Units 06:57 06:57 05:55 RBC 2.83 L 2.85 L (4.40-5.60) X 10*6/uL Hgb 7.9 L 7.9 L (13.0-17.0) g/dL Hct 25.0 L 25.2 L (39.6-50.0) % MCHC 31.6 L 31.3 L (32.0-37.0) g/dL RDW 15.3 H 15.1 H (11.5-14.5) % Immature Gran # 0.05 H 0.05 H (0.00-0.04) X 10*3/uL Sodium 134 L (135-145) mmol/L Carbon Dioxide 28.1 H (20.0-27.5) mmol/L Anion Gap 4.10 L (10.00-18.00) mmol/L BUN/Creatinine Ratio 9.21 L (12.00-20.00) Ratio Glucose 115 H (70-110) mg/dL Calcium 8.0 L (8.7-10.3) mg/dL Total Protein 6.0 L (6.2-8.2) g/dL Albumin 3.3 L (3.8-4.9) g/dL Albumin/Globulin Ratio 1.24 L (1.60-3.17) g/dL 12/15/21 Range/Units 05:55 RBC (4.40-5.60) X 10*6/uL Hgb (13.0-17.0) g/dL Hct (39.6-50.0) % MCHC (32.0-37.0) g/dL RDW (11.5-14.5) % Immature Gran # (0.00-0.04) X 10*3/uL Sodium (135-145) mmol/L Carbon Dioxide (20.0-27.5) mmol/L Anion Gap (10.00-18.00) mmol/L BUN/Creatinine Ratio 9.80 L (12.00-20.00) Ratio Glucose (70-110) mg/dL Calcium 7.9 L (8.7-10.3) mg/dL Total Protein (6.2-8.2) g/dL Albumin (3.8-4.9) g/dL Albumin/Globulin Ratio (1.60-3.17) g/dL
[2021-12-16] MEDS: PANTOPRAZOLE 40 MG/10 ML VIAL IVP SCH (08:07)
[2021-12-16] MEDS: HYDROmorphone 0.5 MG/0.5 ML SYRINGE IVP PRN (08:11)
[2021-12-16 08:58] LABS: HCT 24.2 % (39.0-53.0); HGB 7.9 gm/dL (13.0-17.5); Hypochromasia Moderate; MCH 28.3 pg (25.0-35.0); MCHC 32.7 g/dL (31.0-37.0); MCV 86.5 fL (80.0-100.0); Mean Platelet Volume 8.6; Platelet Count 298 k/uL (150-450); Poikilocytosis Slight; RBC 2.79 m/uL (4.30-5.90); RDW 14.9 % (11.5-15.5); WBC 7.9 k/uL (3.8-10.6)
[2021-12-16] MEDS: SUCRALFATE 1 GM TAB PO SCH ×2 (09:14→14:07)
[2021-12-16] MEDS: LEVOTHYROXINE 100 MCG TAB PO SCH (09:14)
[2021-12-16] MEDS ORDERED: PROPOFOL 10 MG/ML 20 ML VIAL IV ONE (12:44)
[2021-12-16] MEDS ORDERED: IV FLUID CONTINUATION 1,000 ML IV ONE (12:45)
--- NOTE | 2021-12-16 13:00 | P.PCN ---
Date of Procedure: 12/16/21 Procedure(s) Performed: BRIEF HISTORY: Patient is a 61-year-old pleasant white male scheduled for an elective colonoscopy as a part of acute GI bleed. He had an upper endoscopy done 2 days ago that revealed healing duodenal ulcer and mild erosive gastritis with no active bleeding. He dropped his hemoglobin to 6.5 g/dL receiving 3 units of PRBC transfusion. Hemoglobin is stable. PROCEDURE PERFORMED: Colonoscopy. PREOPERATIVE DIAGNOSIS: Acute GI bleed. IV sedation per Anesthesia. PROCEDURE: After informed consent was obtained, the patient, was brought into the endoscopy unit. IV sedation was administered by Anesthesia under continuous monitoring. Digital rectal examination was normal. Initially the Olympus CF-160 flexible video colonoscope was then inserted in the rectum, gradually advanced into the cecum without any difficulty. Careful examination was performed as the scope was gradually being withdrawn. Ileocecal valve and the appendiceal orifice were visualized and appeared normal. Prep was excellent. Mucosa of the cecum, ascending colon, transverse colon, descending colon, sigmoid colon, and rectum appeared normal. Retroflexion was performed in the rectum and no lesions were seen. The patient tolerated the procedure well. IMPRESSION: Normal-appearing colon from rectum to cecum with no evidence of colitis or colorectal neoplasia and no active bleeding. RECOMMENDATIONS: Findings of this examination were discussed with the patient as well as his family. He'll be started on regular diet. Continue Protonix 40 mg daily. Avoid NSAIDs. He can be discharged home today. Recommend repeat colonoscopy in 10 years..
[2021-12-16 13:25] VITALS: BP 99/58; PULSE 95; TEMP 98
[2021-12-16] MEDS: HYDROcodone/APAP 5-325MG 1 EACH TAB PO PRN (14:09)
== END 2021-12-16 15:35 | disposition home or self-care (01) | DRG 378 ==
LOC: EC 10:34 → 4SSUR 15:44
PROVIDERS: ADMIT Internal Medicine; ATTEND Internal Medicine
PROC: 30233N1 Transfusion of Nonautologous Red Blood Cells into Peripheral Vein, Percutaneous Approach (ICD-10-PCS; 2021-12-13)
PROC: 0DJ08ZZ Inspection of Upper Intestinal Tract, Via Natural or Artificial Opening Endoscopic (ICD-10-PCS; principal; 2021-12-14 11:40)
PROC: 0DJD8ZZ Inspection of Lower Intestinal Tract, Via Natural or Artificial Opening Endoscopic (ICD-10-PCS; 2021-12-16)
DX: K29.61 Other gastritis with bleeding (principal); D62 Acute posthemorrhagic anemia; E87.20 Acidosis, unspecified; K25.4 Chronic or unspecified gastric ulcer with hemorrhage; I10 Essential (primary) hypertension; E03.9 Hypothyroidism, unspecified; I95.9 Hypotension, unspecified; M25.462 Effusion, left knee; K92.1 Melena; M17.12 Unilateral primary osteoarthritis, left knee; M23.92 Unspecified internal derangement of left knee; K29.81 Duodenitis with bleeding; K21.9 Gastro-esophageal reflux disease without esophagitis; T39.395A Adverse effect of other nonsteroidal anti-inflammatory drugs [NSAID], initial encounter; R74.8 Abnormal levels of other serum enzymes; M10.9 Gout, unspecified; R00.0 Tachycardia, unspecified; T39.315A Adverse effect of propionic acid derivatives, initial encounter; Z28.310 Unvaccinated for COVID-19; Z79.899 Other long term (current) drug therapy; Z79.890 Hormone replacement therapy; Z79.82 Long term (current) use of aspirin
CPT/HCPCS: 36415; 43235; 45378; 80048; 80053; 83690; 83735; 85025; 85027; 85610; 85730; 86850; 86900; 86901; 86920; 96360; 96361; 99285

== ENCOUNTER → 2021-12-18 | Outpatient (CLI) | payer MEDICAID ==
[2021-12-18 16:38] LABS: Basophils # (A) 0.04 X 10*3/uL (0.00-0.10); Basophils % (A) 0.6 %; Eosinophils % (A) 7.1 %; HCT 27.2 % (39.6-50.0); HGB 8.5 g/dL (13.0-17.0); Immature Grans, Automated 0.3 %; Lymphocytes # (A) 1.25 X 10*3/uL (0.90-5.00); Lymphocytes % (A) 17.7 %; MCH 27.4 pg (27.0-32.0); MCHC 31.3 g/dL (32.0-37.0); MCV 87.7 fL (80.0-97.0); Mean Platelet Volume 10.2 fL (9.5-12.2); Monocytes # (A) 0.47 X 10*3/uL (0.20-1.00); Monocytes % (A) 6.7 %; NRBC Per 100 WBC 0 /100 WBCS (0.0-0.0); Neutrophils # (A) 4.78 X 10*3/uL (1.80-7.70); Neutrophils % (A) 67.6 %; Platelet Count 427 X 10*3/uL (140-440); RDW 14.6 % (11.5-14.5); WBC 7.06 X 10*3/uL (4.50-10.00)
== END | disposition home or self-care (01) ==
LOC: LABWHC1 09:50
PROVIDERS: ATTEND Registered Nurse
DX: D64.9 Anemia, unspecified (principal)
CPT/HCPCS: 36415; 85025

== ENCOUNTER → 2021-12-23 | Outpatient (CLI) | payer MEDICAID ==
--- NOTE | 2021-12-24 05:48 | MR ---
EXAMINATION TYPE: MR knee LT wo con DATE OF EXAM: 12/23/2021 COMPARISON: 10/14/2015 HISTORY: Left knee pain and swelling x30 days - no known injury Multiplanar multiecho imaging of the left knee performed without contrast. There is a [id number] knee joint effusion. There is subcutaneous edema around the knee. The pat meghan is intact. The anterior and posterior cruciate ligaments are intact. There is minimal increased signal within the posterior horn of the medial meniscus. No definite tear extending to the articular surface. The lateral meniscus appears intact. Collateral ligaments appear intact. IMPRESSION: Intrasubstance tear of the posterior horn medial meniscus similar to old exam. Knee joint effusion is slightly smaller than old exam. No evidence of ligament tear. No fracture. No evidence of a fracture. No focal bone destruction.
== END | disposition home or self-care (01) ==
LOC: RADMRIMAIN 16:23
PROVIDERS: ATTEND Orthopaedic Surgery
DX: M23.222 Derangement of posterior horn of medial meniscus due to old tear or injury, left knee (principal); M25.462 Effusion, left knee

== ENCOUNTER → 2021-12-27 | Outpatient (CLI) | payer MEDICAID ==
[2021-12-27 14:24] LABS: Basophils # (A) 0.04 X 10*3/uL (0.00-0.10); Basophils % (A) 0.8 %; Eosinophils # (A) 0.27 X 10*3/uL (0.04-0.35); Eosinophils % (A) 5.5 %; HCT 34.5 % (39.6-50.0); HGB 10.3 g/dL (13.0-17.0); Immature Grans, Automated 0.6 %; Lymphocytes # (A) 1.58 X 10*3/uL (0.90-5.00); Lymphocytes % (A) 32.2 %; MCH 26.1 pg (27.0-32.0); MCHC 29.9 g/dL (32.0-37.0); MCV 87.6 fL (80.0-97.0); Monocytes # (A) 0.44 X 10*3/uL (0.20-1.00); NRBC Per 100 WBC 0 /100 WBCS (0.0-0.0); Neutrophils # (A) 2.54 X 10*3/uL (1.80-7.70); Neutrophils % (A) 51.9 %; Platelet Count 458 X 10*3/uL (140-440); RBC 3.94 X 10*6/uL (4.40-5.60); RDW 14.9 % (11.5-14.5)
== END | disposition home or self-care (01) ==
LOC: LABWHC1 09:43
PROVIDERS: ATTEND Family Medicine
DX: D62 Acute posthemorrhagic anemia (principal)
CPT/HCPCS: 36415; 85025

== ENCOUNTER → 2021-12-31 | Outpatient (CLI) | payer MEDICAID ==
[2021-12-31 17:37] LABS: Basophils # (A) 0.06 X 10*3/uL (0.00-0.10); Basophils % (A) 0.8 %; Eosinophils # (A) 0.23 X 10*3/uL (0.04-0.35); Eosinophils % (A) 2.9 %; HCT 37.7 % (39.6-50.0); HGB 11.2 g/dL (13.0-17.0); Immature Grans, Automated 0.8 %; Lymphocytes # (A) 2.42 X 10*3/uL (0.90-5.00); Lymphocytes % (A) 30.9 %; MCHC 29.7 g/dL (32.0-37.0); MCV 87.7 fL (80.0-97.0); Mean Platelet Volume 9.8 fL (9.5-12.2); Monocytes # (A) 0.68 X 10*3/uL (0.20-1.00); Monocytes % (A) 8.7 %; NRBC Per 100 WBC 0 /100 WBCS (0.0-0.0); Neutrophils # (A) 4.38 X 10*3/uL (1.80-7.70); Neutrophils % (A) 55.9 %; Platelet Count 509 X 10*3/uL (140-440); RDW 15.3 % (11.5-14.5); WBC 7.83 X 10*3/uL (4.50-10.00)
[2021-12-31 17:54] LABS: Anion Gap 11.3 mmol/L (10.00-18.00); Carbon Dioxide 28.3 mmol/L (20.0-27.5); Potassium 4.9 mmol/L (3.5-5.5)
== END | disposition home or self-care (01) ==
LOC: LABPAT 11:21
PROVIDERS: ATTEND Orthopaedic Surgery
DX: Z01.812 Encounter for preprocedural laboratory examination (principal); M23.92 Unspecified internal derangement of left knee
CPT/HCPCS: 80051; 85025; 93005

== ENCOUNTER → 2022-01-10 | Outpatient (CLI) | payer MEDICAID ==
[2022-01-10 14:17] LABS: Basophils # (A) 0.07 X 10*3/uL (0.00-0.10); Basophils % (A) 0.7 %; HCT 38.1 % (39.6-50.0); HGB 11.5 g/dL (13.0-17.0); Immature Grans, Automated 0.5 %; Lymphocytes # (A) 1.74 X 10*3/uL (0.90-5.00); Lymphocytes % (A) 17.4 %; MCH 25.8 pg (27.0-32.0); MCHC 30.2 g/dL (32.0-37.0); MCV 85.6 fL (80.0-97.0); Mean Platelet Volume 10.4 fL (9.5-12.2); Monocytes # (A) 0.69 X 10*3/uL (0.20-1.00); Monocytes % (A) 6.9 %; NRBC Per 100 WBC 0 /100 WBCS (0.0-0.0); Neutrophils # (A) 7.24 X 10*3/uL (1.80-7.70); Neutrophils % (A) 72.5 %; Platelet Count 398 X 10*3/uL (140-440); RBC 4.45 X 10*6/uL (4.40-5.60); RDW 14.8 % (11.5-14.5); WBC 9.99 X 10*3/uL (4.50-10.00)
[2022-01-10 14:34] LABS: African American GFR (CKD) 74.7 (60.0-200.0); Albumin 3.9 g/dL (3.8-4.9); Albumin/Globulin Ratio 0.85 (1.60-3.17); Anion Gap 11.4 mmol/L (10.00-18.00); BUN/Creat Ratio 11.5 Ratio (12.00-20.00); Blood Urea Nitrogen 13.8 mg/dL (9.0-27.0); Calcium 9.5 mg/dL (8.7-10.3); Carbon Dioxide 26.6 mmol/L (20.0-27.5); Globulin 4.6 g/dL (1.6-3.3); Non-African American GFR(CKD) 64.4 (60.0-200.0); Potassium 4.5 mmol/L (3.5-5.5); T4, Free (Free Thyroxine) 1.31 ng/dL (0.800-1.800); Total Bilirubin 0.3 mg/dL (0.30-1.20); Total Protein 8.5 g/dL (6.2-8.2)
== END | disposition home or self-care (01) ==
LOC: LABWHC1 10:22
PROVIDERS: ATTEND Family Medicine
DX: I10 Essential (primary) hypertension (principal); E03.9 Hypothyroidism, unspecified; D72.828 Other elevated white blood cell count; R77.9 Abnormality of plasma protein, unspecified
CPT/HCPCS: 36415; 80053; 84439; 84443; 85025

== ENCOUNTER 2022-01-13 12:24 | Day surgery (SDC) | payer MEDICAID ==
--- NOTE | 2022-01-12 23:12 | HP ---
HISTORY AND PHYSICAL DATE OF SURGERY: 01/13/2022. HISTORY OF PRESENT ILLNESS: Chad Corcoran is a 61-year-old patient, seen with progressive left knee pain. We discussed options for treatment. He elected to proceed with left knee arthroscopy. Consent was obtained. PAST MEDICAL HISTORY: Hypertension, hypothyroidism. PAST SURGICAL HISTORY: Knee arthroscopy. DAILY MEDICATIONS: 1. Amlodipine. 2. Levothyroxine. ALLERGIES: None. SOCIAL HISTORY: Denies tobacco use. PHYSICAL EVALUATION OF THE LEFT KNEE: His range of motion is -12 to 90. Tenderness in the medial joint line. Tenderness in the lateral joint line. Positive medial Al's. Positive lateral Al's. Ligament is stable. Hip rotation without pain. Distal neurovascular exam intact. RADIOGRAPHS: Radiographs of the left knee revealed moderate osteoarthritis. MRI of the left knee revealed intrasubstance tear in the medial meniscus. IMPRESSION: 1. Internal derangement of left knee with medial meniscal tear. 2. Hypertension. PLAN: Left knee arthroscopy with partial medial meniscectomy and debridement. MMODL / IJN: [id number] /
[2022-01-13] MEDS ORDERED: ONDANSETRON 4 MG/2 ML VIAL IVP ONE (13:09)
[2022-01-13] MEDS ORDERED: HYDROmorphone 0.5 MG/0.5 ML SYRINGE IVP PRN (13:09)
[2022-01-13] MEDS ORDERED: DEXAMETHASONE SOD PHOSPHATE 4 MG/ML 1 ML VIAL IV ONE (13:09)
[2022-01-13] MEDS ORDERED: LACTATED RINGERS 1,000 ML IV SCH (13:09)
[2022-01-13] MEDS ORDERED: BUPIVACAINE (PF) 0.25% 30 ML VIAL SQ ONE ×2 (15:09→15:40)
[2022-01-13] MEDS ORDERED: LIDOCAINE 2% INJ 20 MG/ML (2 ML VIAL) ONE (15:10)
[2022-01-13] MEDS ORDERED: MIDAZOLAM 2 MG/2 ML VIAL ONE (15:10)
[2022-01-13] MEDS ORDERED: fentaNYL (PF) 50 MCG/ML 2 ML AMP ONE (15:10)
[2022-01-13] MEDS ORDERED: HYDROmorphone (PF) 1 MG/ML ONE (15:10)
[2022-01-13] MEDS ORDERED: PROPOFOL 10 MG/ML 20 ML VIAL IV ONE (15:10)
--- NOTE | 2022-01-13 15:53 | P.OP ---
Date of Procedure: 01/13/22 Preoperative Diagnosis: Internal derangement left knee Postoperative Diagnosis: 1. Tear medial and lateral meniscus left knee 2. Reactive synovitis medial, lateral and suprapatellar compartments left knee Procedure(s) Performed: 1. Arthroscopic partial medial and lateral meniscectomy left knee 2. Arthroscopic partial synovectomy medial, lateral and suprapatellar compartments left knee Anesthesia: GETA, local Surgeon: Edu Gilliland Estimated Blood Loss (ml): 7 Pathology: none sent Condition: stable Disposition: PACU Indications for Procedure: 61-year-old patient seen with progressive left knee pain. After treatment options were discussed, he elected to proceed with arthroscopy. Operative Findings: See description of procedure Description of Procedure: Patient was taken to the operative suite. Patient underwent a general anesthetic by the department of anesthesia. Patient was given preoperative antibiotics. The left lower extremity was placed in a well-padded arthroscopic leg ley. The left leg was prepped and draped in the normal sterile orthopedic fashion. A lateral parapatellar and suprapatellar incision was made. Trochars were inserted. Arthroscopy was initiated. Suprapatellar pouch rev ealed diffuse thick reactive synovitis. The patellofemoral joint appeared articulate congruently. There mild grade 1 chondromalacia with no osteochondral tears present.. The scope was guided into the medial gutter. No loose bodies or plica were identified. The scope was then guided into the medial compartment. A medial parapatellar incision was made. Trocar inserted followed by probe. There was a radial tear along the posterior horn of the medial meniscus. There was a tear along the anterior horn medial meniscus. There were grade 1 chondral malacia changes of the medial compartment. There was significant thick reactive synovitis anteriorly. I performed a partial medial meniscectomy getting down to stable meniscal tissue. I performed a partial synovectomy decompressing the thick reactive synovitis. The residual meniscus was probed and was found to be stable. There was good decompression of the synovitis. Scope and probe were then guided into the intercondylar notch. Cr uciates were identified, probed and found to be stable. The scope and probe were then guided into lateral compartment. There was a radial tear posterior horn lateral meniscus. There were grade 1 chondromalacia changes lateral compartment. There was some thick reactive synovitis anteriorly. I performed a partial lateral meniscectomy. I performed a partial synovectomy. The residual meniscus was stable. There was good decompression of the synovitis. The scope was in guided back into the suprapatellar compartment. I introduced a motorized shaver into the suprapatellar compartment. I debrided some piecemeal fragments of meniscus I encountered. I performed a partial synovectomy. The shaver was removed. There was good decompression of the synovitis. I took one more look around the entire knee, no residual debris. Instruments were now removed from the joint. The joint was infiltrated with .25% Marcaine. Steri-Strips were applied to the portal sites. Sterile dressings were applied. The patient was placed into a MERLYN hose. No tourniquet was utilized. The patient was awakened, transferred to a bed and taken to recovery stable satisfactory condition.
[2022-01-13 15:55] VITALS: TEMP 97
[2022-01-13 16:04] VITALS: RESP 16
[2022-01-13 16:27] VITALS: BP 139/83; PULSE 107
== END 2022-01-13 17:09 | disposition home or self-care (01) ==
LOC: OR 12:24
PROVIDERS: ATTEND Orthopaedic Surgery
DX: M23.322 Other meniscus derangements, posterior horn of medial meniscus, left knee (principal); M23.312 Other meniscus derangements, anterior horn of medial meniscus, left knee; M23.352 Other meniscus derangements, posterior horn of lateral meniscus, left knee; M65.862 Other synovitis and tenosynovitis, left lower leg; M94.262 Chondromalacia, left knee; I10 Essential (primary) hypertension; E03.9 Hypothyroidism, unspecified; Z79.890 Hormone replacement therapy; M17.12 Unilateral primary osteoarthritis, left knee; Z79.899 Other long term (current) drug therapy
CPT/HCPCS: 29880; J2250; J1100; J0690; J2405; J3010; J1170; J2704; J2001

== ENCOUNTER → 2022-05-24 | Outpatient (CLI) | payer MEDICAID ==
[2022-05-24 10:36] LABS: Basophils # (A) 0.06 X 10*3/uL (0.00-0.10); Eosinophils # (A) 0.32 X 10*3/uL (0.04-0.35); Eosinophils % (A) 5.2 %; HCT 49.8 % (39.6-50.0); HGB 15.4 g/dL (13.0-17.0); Immature Grans, Automated 0.2 %; Lymphocytes % (A) 37.1 %; MCH 24.8 pg (27.0-32.0); MCHC 30.9 g/dL (32.0-37.0); MCV 80.3 fL (80.0-97.0); Monocytes # (A) 0.74 X 10*3/uL (0.20-1.00); Monocytes % (A) 11.9 %; NRBC Per 100 WBC 0 /100 WBCS (0.0-0.0); Neutrophils # (A) 2.77 X 10*3/uL (1.80-7.70); Neutrophils % (A) 44.6 %; Platelet Count 225 X 10*3/uL (140-440); RDW 16.6 % (11.5-14.5)
[2022-05-24 10:48] LABS: African American GFR (CKD) 82.9 (60.0-200.0); Albumin 4.5 g/dL (3.8-4.9); Albumin/Globulin Ratio 1.41 (1.60-3.17); BUN/Creat Ratio 14.45 Ratio (12.00-20.00); Blood Urea Nitrogen 15.9 mg/dL (9.0-27.0); Calcium 9.6 mg/dL (8.7-10.3); Globulin 3.2 g/dL (1.6-3.3); Non-African American GFR(CKD) 71.6 (60.0-200.0); Potassium 5.3 mmol/L (3.5-5.5); T4, Free (Free Thyroxine) 1.81 ng/dL (0.800-1.800); Total Bilirubin 0.4 mg/dL (0.30-1.20); Total Protein 7.7 g/dL (6.2-8.2)
== END | disposition home or self-care (01) ==
LOC: LABWHC1 07:08
PROVIDERS: ATTEND Family Medicine
DX: I10 Essential (primary) hypertension (principal); K29.01 Acute gastritis with bleeding; E03.9 Hypothyroidism, unspecified; D62 Acute posthemorrhagic anemia
CPT/HCPCS: 36415; 80053; 84439; 84443; 85025

== ENCOUNTER → 2022-06-24 | Outpatient (CLI) | payer MEDICAID ==
--- NOTE | 2022-06-24 19:41 | CA ---
Transthoracic Echo Report Name: Chad Corcoran Age: 61 Gender: M : 1960 Exam Date: 06/24/2022 14:32 Exam Location: [facility] Ht (in): 67 Wt (lb): 200 Ordering Physician: Anil Farrell MD Attending/Referring Phys: LETICIA, Bud Pet Handler Tena Almanzar RDCS Procedure CPT: Indications: I10,R03.1 Cardiac Hx: Technical Quality: Fair Contrast 1: Total Dose (mL): Contrast 2: Total Dose (mL): MEASUREMENTS (Male / Female) Normal Values 2D ECHO LV Diastolic Diameter PLAX 3.9 cm 4.2 - 5.9 / 3.9 - 5.3 cm LV Systolic Diameter PLAX 2.2 cm IVS Diastolic Thickness 1.1 cm 0.6 - 1.0 / 0.6 - 0.9 cm LVPW Diastolic Thickness 1.0 cm 0.6 - 1.0 / 0.6 - 0.9 cm LV Relative Wall Thickness 0.5 RV Internal Dim ED PLAX 3.4 cm M-MODE Aortic Root Diameter MM 2.9 cm LA Systolic Diameter MM 3.9 cm LA Ao Ratio MM 1.4 AV Cusp Separation MM 0.0 cm DOPPLER AV Peak Velocity 164.6 cm/s AV Peak Gradient 10.8 mmHg AV Mean Velocity 110.6 cm/s AV Mean Gradient 5.4 mmHg AV Velocity Time Integral 32.7 cm LVOT Peak Velocity 106.5 cm/s LVOT Peak Gradient 4.5 mmHg LVOT Velocity Time Integral 19.6 cm Mitral E Point Velocity 81.1 cm/s Mitral A Point Velocity 116.2 cm/s Mitral E to A Ratio 0.7 MV Deceleration Time 218.2 ms MV E' Velocity 10.2 cm/s Mitral E to MV E' Ratio 8.0 FINDINGS Left Ventricle Normal left ventricular size, wall thickness, systolic function with no obvious regional wall motion abnormalities. Normal left ventricular diastolic filling pattern for age. The ejection fraction is visually estimated at 55 %. Right Ventricle The right ventricle is normal in size and function. Right Atrium The right atrium is normal in size. Left Atrium The left atrium is normal in size. Mitral Valve Structurally normal mitral valve without significant stenosis or prolapse. There is no mitral regurgitation. Aortic Valve Structurally normal aortic valve without significant sclerosis or stenosis. There is no aortic regurgitation. Tricuspid Valve Structurally normal tricuspid valve without significant stenosis. Pulmonary artery systolic pressure is normal. Trace tricuspid regurgitation. Pulmonic Valve Structurally normal pulmonic valve without significant stenosis. There is no pulmonic regurgitation. Pericardium Normal pericardium without effusion. Aorta Normal aortic root dimension. CONCLUSIONS Normal LV systolic function Previewed by: Dr. Taran Minor MD (Electronically Signed) Final Date: 24 June 2022 19:40
== END | disposition home or self-care (01) ==
LOC: RADECHMAIN 14:10
PROVIDERS: ATTEND Family Medicine
DX: I10 Essential (primary) hypertension (principal); R03.1 Nonspecific low blood-pressure reading
CPT/HCPCS: 93306

== ENCOUNTER → 2022-08-09 | Outpatient (CLI) | payer MEDICAID ==
[2022-08-09 12:29] LABS: ALT 21 U/L (10-49); AST 17 U/L (14-35); Albumin 4.5 d/dL (3.8-4.9); Albumin/Globulin Ratio 1.61 Ratio (1.60-3.17); Alkaline Phosphatase 58 U/L (41-126); BUN/Creat Ratio 15.67 Ratio (12.00-20.00); Blood Urea Nitrogen 18.8 mg/dL (9.0-27.0); Calcium 9.2 mg/dL (8.7-10.3); Carbon Dioxide 27.8 mmol/L (21.6-31.8); Chloride 102 mmol/L (96-109); Chol/HDL Ratio 5.56 Ratio; Globulin 2.8 d/dL (1.6-3.3); Glucose 107 mg/dL (70-110); LDL Cholesterol,Calculated 108.6 mg/dL (0.0-131.0); Potassium 4.8 mmol/L (3.5-5.5); Sodium 141 mmol/L (135-145); Total Bilirubin 0.3 mg/dL (0.3-1.2); Total Protein 7.3 d/dL (6.2-8.2)
[2022-08-09 13:35] LABS: Basophils # (A) 0.04 X 10*3/uL (0.00-0.10); Basophils % (A) 0.6 %; Eosinophils % (A) 4.2 %; HCT 50.1 % (39.6-50.0); HGB 15.5 d/dL (12.0-15.0); Lymphocytes # (A) 2.58 X 10*3/uL (0.90-5.00); Lymphocytes % (A) 36.4 %; MCH 25.8 pg (27.0-32.0); MCHC 30.9 d/dL (32.0-37.0); MCV 83.5 FL (80.0-97.0); Mean Platelet Volume 11.8 FL (9.5-12.2); Monocytes # (A) 0.64 X 10*3/uL (0.20-1.00); NRBC Per 100 WBC 0 X 10*3/uL (0.00-0.01); Neutrophils # (A) 3.52 X 10*3/uL (1.80-7.70); Neutrophils % (A) 49.7 %; Platelet Count 210 X 10*3/uL (140-440); WBC 7.09 X 10*3/uL (4.50-10.00)
== END | disposition home or self-care (01) ==
LOC: LABWHC1 07:06
PROVIDERS: ATTEND Family Medicine
DX: I10 Essential (primary) hypertension (principal); E03.9 Hypothyroidism, unspecified; K29.01 Acute gastritis with bleeding; N40.1 Benign prostatic hyperplasia with lower urinary tract symptoms; E78.1 Pure hyperglyceridemia; R03.1 Nonspecific low blood-pressure reading
CPT/HCPCS: 36415; 80053; 80061; 84153; 84436; 84443; 85025

== ENCOUNTER → 2023-02-02 | Outpatient (CLI) | payer MEDICAID ==
[2023-02-02 11:11] LABS: Basophils # (A) 0.05 X 10*3/uL (0.00-0.10); Basophils % (A) 0.7 %; Eosinophils # (A) 0.26 X 10*3/uL (0.04-0.35); Eosinophils % (A) 3.9 %; HCT 49.7 % (39.6-50.0); HGB 16.1 g/dL (13.0-17.0); Lymphocytes # (A) 2.59 X 10*3/uL (0.90-5.00); Lymphocytes % (A) 38.5 %; MCH 27.3 pg (27.0-32.0); MCHC 32.4 g/dL (32.0-37.0); MCV 84.2 FL (80.0-97.0); Mean Platelet Volume 11.3 FL (9.5-12.2); Monocytes # (A) 0.64 X 10*3/uL (0.20-1.00); Monocytes % (A) 9.5 %; NRBC Per 100 WBC 0 X 10*3/uL (0.00-0.01); Neutrophils # (A) 3.17 X 10*3/uL (1.80-7.70); Neutrophils % (A) 47.3 %; Platelet Count 224 X 10*3/uL (140-440); RDW 13.5 % (11.5-14.5); WBC 6.72 X 10*3/uL (4.50-10.00)
[2023-02-02 11:37] LABS: ALT 29 U/L (10-49); AST 26 U/L (14-35); Albumin 4.4 g/dL (3.8-4.9); Albumin/Globulin Ratio 1.33 Ratio (1.60-3.17); Alkaline Phosphatase 61 U/L (41-126); BUN/Creat Ratio 10.57 Ratio (12.00-20.00); Blood Urea Nitrogen 14.8 mg/dL (9.0-27.0); Calcium 9.6 mg/dL (8.7-10.3); Chloride 104 mmol/L (96-109); Chol/HDL Ratio 5.43 Ratio; Globulin 3.3 g/dL (1.6-3.3); Glucose 113 mg/dL (70-110); LDL Cholesterol,Calculated 104.9 mg/dL (0.0-131.0); Potassium 5.6 mmol/L (3.5-5.5); Sodium 142 mmol/L (135-145); T4, Free (Free Thyroxine) 1.05 ng/dL (0.80-1.80); Total Bilirubin 0.5 mg/dL (0.3-1.2); Total Protein 7.7 g/dL (6.2-8.2); Uric Acid 9.1 mg/dL (3.7-8.7)
== END | disposition home or self-care (01) ==
LOC: LABWHC1 06:58
PROVIDERS: ATTEND Physician Assistant
DX: M10.9 Gout, unspecified (principal); E03.9 Hypothyroidism, unspecified; E78.5 Hyperlipidemia, unspecified; R73.9 Hyperglycemia, unspecified
CPT/HCPCS: 36415; 80053; 80061; 83036; 84439; 84443; 84550; 85025

== ENCOUNTER → 2023-05-05 | Outpatient (CLI) | payer MEDICAID ==
[2023-05-05 11:38] LABS: Basophils # (A) 0.06 X 10*3/uL (0.00-0.10); Eosinophils # (A) 0.25 X 10*3/uL (0.04-0.35); HCT 52.8 % (39.6-50.0); Lymphocytes # (A) 2.17 X 10*3/uL (0.90-5.00); Lymphocytes % (A) 34.7 %; MCH 27.6 pg (27.0-32.0); MCHC 32.2 g/dL (32.0-37.0); MCV 85.6 FL (80.0-97.0); Mean Platelet Volume 11.1 FL (9.5-12.2); Monocytes # (A) 0.61 X 10*3/uL (0.20-1.00); Monocytes % (A) 9.7 %; NRBC Per 100 WBC 0 X 10*3/uL (0.00-0.01); Neutrophils # (A) 3.15 X 10*3/uL (1.80-7.70); Neutrophils % (A) 50.3 %; Platelet Count 218 X 10*3/uL (140-440); RBC 6.17 X 10*6/uL (4.40-5.60); RDW 13.1 % (11.5-14.5); WBC 6.26 X 10*3/uL (4.50-10.00)
[2023-05-05 11:42] LABS: ALT 28 U/L (10-49); AST 23 U/L (14-35); Albumin 4.5 g/dL (3.8-4.9); Albumin/Globulin Ratio 1.45 Ratio (1.60-3.17); Alkaline Phosphatase 57 U/L (41-126); Blood Urea Nitrogen 18.6 mg/dL (9.0-27.0); Calcium 9.3 mg/dL (8.7-10.3); Carbon Dioxide 26.8 mmol/L (21.6-31.8); Chloride 103 mmol/L (96-109); Chol/HDL Ratio 5.35 Ratio; Globulin 3.1 g/dL (1.6-3.3); Glucose 95 mg/dL (70-110); Potassium 4.5 mmol/L (3.5-5.5); Sodium 141 mmol/L (135-145); T4, Free (Free Thyroxine) 1.66 ng/dL (0.80-1.80); Total Bilirubin 0.5 mg/dL (0.3-1.2); Total Protein 7.6 g/dL (6.2-8.2); Uric Acid 6.7 mg/dL (3.7-8.7)
== END | disposition home or self-care (01) ==
LOC: LABWHC1 07:07
PROVIDERS: ATTEND Internal Medicine Geriatric Medicine
DX: I10 Essential (primary) hypertension (principal); E78.5 Hyperlipidemia, unspecified; E03.9 Hypothyroidism, unspecified; R73.9 Hyperglycemia, unspecified
CPT/HCPCS: 36415; 80053; 80061; 83036; 84439; 84443; 84550; 85025

== ENCOUNTER → 2023-10-06 | Outpatient (CLI) | payer MEDICAID | END | disposition home or self-care (01) | LOC: LABWHC1 07:03 | PROVIDERS: ATTEND Internal Medicine Geriatric Medicine | DX: E03.9 Hypothyroidism, unspecified (principal); E78.5 Hyperlipidemia, unspecified; M79.671 Pain in right foot; N40.0 Benign prostatic hyperplasia without lower urinary tract symptoms; M10.9 Gout, unspecified; R73.9 Hyperglycemia, unspecified | CPT/HCPCS: 36415; 80053; 80061; 83036; 84153; 84439; 84443; 84550; 85025 ==

== ENCOUNTER → 2024-01-04 | Outpatient (CLI) | payer MEDICAID ==
[2024-01-04 10:18] LABS: Basophils # (A) 0.04 X 10*3/uL (0.00-0.10); Basophils % (A) 0.6 %; Eosinophils % (A) 4.8 %; HCT 49.4 % (39.6-50.0); HGB 16.5 g/dL (13.0-17.0); Lymphocytes # (A) 1.86 X 10*3/uL (0.90-5.00); Lymphocytes % (A) 29.9 %; MCH 27.9 pg (27.0-32.0); MCHC 33.4 g/dL (32.0-37.0); MCV 83.6 FL (80.0-97.0); Monocytes # (A) 0.65 X 10*3/uL (0.20-1.00); Monocytes % (A) 10.5 %; NRBC Per 100 WBC 0 X 10*3/uL (0.00-0.01); Neutrophils # (A) 3.35 X 10*3/uL (1.80-7.70); Neutrophils % (A) 53.9 %; Platelet Count 192 X 10*3/uL (140-440); RBC 5.91 X 10*6/uL (4.40-5.60); RDW 13.6 % (11.5-14.5); WBC 6.22 X 10*3/uL (4.50-10.00)
[2024-01-04 10:34] LABS: BUN/Creat Ratio 13.27 Ratio (12.00-20.00); Blood Urea Nitrogen 14.6 mg/dL (9.0-27.0); Carbon Dioxide 27.7 mmol/L (21.6-31.8); Chloride 103 mmol/L (96-109); Chol/HDL Ratio 5.17 Ratio; Glucose 112 mg/dL (70-110); LDL Cholesterol,Calculated 95.9 mg/dL (0.0-131.0); Potassium 4.5 mmol/L (3.5-5.5); Sodium 140 mmol/L (135-145); Uric Acid 4.3 mg/dL (3.7-8.7)
[2024-01-04 10:35] LABS: ALT 21 U/L (10-49); AST 21 U/L (14-35); Albumin 4.3 g/dL (3.8-4.9); Albumin/Globulin Ratio 1.72 Ratio (1.60-3.17); Alkaline Phosphatase 66 U/L (41-126); Calcium 9.2 mg/dL (8.7-10.3); Globulin 2.5 g/dL (1.6-3.3); Prostate Specific Antigen 0.54 ng/mL (0.000-4.500); T4, Free (Free Thyroxine) 1.66 ng/dL (0.80-1.80); Total Bilirubin 0.5 mg/dL (0.3-1.2); Total Protein 6.8 g/dL (6.2-8.2)
[2024-01-04 12:11] LABS: Appearance,Urine Clear (Clear); Bilirubin,Urine Negative (Negative); Blood,Urine Negative (Negative); Color,Urine Yellow (Yellow); Ketones,Urine Negative (Negative); Nitrite,Urine Negative (Negative); PH, Urine 6.5; Specific Gravity,Urine 1.017 (1.001-1.030); Urobilinogen,Urine 0.2 E.U./DL
== END | disposition home or self-care (01) ==
LOC: LABWHC1 07:05
PROVIDERS: ATTEND Internal Medicine Geriatric Medicine
DX: M79.671 Pain in right foot (principal); E78.5 Hyperlipidemia, unspecified; R73.9 Hyperglycemia, unspecified; N40.0 Benign prostatic hyperplasia without lower urinary tract symptoms; E03.9 Hypothyroidism, unspecified; M10.9 Gout, unspecified
CPT/HCPCS: 36415; 80053; 80061; 81003; 83036; 84153; 84439; 84443; 84550; 85025

== ENCOUNTER → 2024-06-26 | Outpatient (CLI) | payer MEDICAID ==
--- NOTE | 2024-06-26 19:56 | XR ---
EXAMINATION TYPE: XR foot complete LT DATE OF EXAM: 06/26/2024 3:49 PM COMPARISON: 11/22/2021 CLINICAL INDICATION: Male, 63 years old with history of M79.672 PAIN IN LEFT FOOT, TECHNIQUE: XR foot complete LT, views submitted for evaluation. FINDINGS: There is no evidence for fracture or dislocation. Degenerative narrowing second metatarsophalangeal j oint. The overlying soft tissue appears unremarkable. Ankle mortise is intact. Soft tissues are withi n normal limits. IMPRESSION: 1. No evidence for acute fracture. [facility], , 06/26/2024 7:54 PM
== END | disposition home or self-care (01) ==
LOC: RADXRMAIN 15:32
PROVIDERS: ATTEND Internal Medicine Geriatric Medicine
DX: M79.672 Pain in left foot (principal)

== ENCOUNTER → 2024-07-03 | Outpatient (CLI) | payer MEDICAID ==
[2024-07-03 10:44] LABS: ALT 19 U/L (10-49); AST 22 U/L (14-35); Albumin 4.2 g/dL (3.8-4.9); Albumin/Globulin Ratio 1.83 Ratio (1.60-3.17); Alkaline Phosphatase 61 U/L (41-126); BUN/Creat Ratio 17.83 Ratio (12.00-20.00); Blood Urea Nitrogen 21.4 mg/dL (9.0-27.0); Calcium 8.9 mg/dL (8.7-10.3); Carbon Dioxide 25.2 mmol/L (21.6-31.8); Chloride 104 mmol/L (96-109); Chol/HDL Ratio 3.75 Ratio; Globulin 2.3 g/dL (1.6-3.3); Glucose 98 mg/dL (70-110); LDL Cholesterol,Calculated 62.8 mg/dL (0.0-131.0); Potassium 4.2 mmol/L (3.5-5.5); Sodium 140 mmol/L (135-145); Total Bilirubin 0.6 mg/dL (0.3-1.2); Total Protein 6.5 g/dL (6.2-8.2); Uric Acid 4.7 mg/dL (3.7-8.7)
[2024-07-03 11:26] LABS: Basophils # (A) 0.04 X 10*3/uL (0.00-0.10); Basophils % (A) 0.7 %; Eosinophils # (A) 0.21 X 10*3/uL (0.04-0.35); Eosinophils % (A) 3.4 %; HGB 16.4 g/dL (13.0-17.0); Lymphocytes # (A) 2.31 X 10*3/uL (0.90-5.00); Lymphocytes % (A) 37.7 %; MCH 27.4 pg (27.0-32.0); MCHC 32.2 g/dL (32.0-37.0); MCV 85.3 FL (80.0-97.0); Mean Platelet Volume 11.3 FL (9.5-12.2); Monocytes % (A) 11.4 %; NRBC Per 100 WBC 0 X 10*3/uL (0.00-0.01); Neutrophils # (A) 2.86 X 10*3/uL (1.80-7.70); Neutrophils % (A) 46.6 %; Platelet Count 174 X 10*3/uL (140-440); RBC 5.98 X 10*6/uL (4.40-5.60); RDW 13.4 % (11.5-14.5); WBC 6.13 X 10*3/uL (4.50-10.00)
== END | disposition home or self-care (01) ==
LOC: LABWHC1 07:07
PROVIDERS: ATTEND Internal Medicine Geriatric Medicine
DX: E78.5 Hyperlipidemia, unspecified (principal); M79.672 Pain in left foot; R73.9 Hyperglycemia, unspecified
CPT/HCPCS: 36415; 80053; 80061; 83036; 84550; 85025